=== PATIENT | female | born 1940 | race Caucasian/White ===

== ENCOUNTER 2017-01-01 08:07 | Inpatient (IN) | payer MEDICARE, OTHER ==
--- NOTE | ~2017-01-01 | OP ---
Record Of Operation [facility] [address] [place]. [address] NAME: OLENA MÉNDEZ : 40 STATUS : ADM IN PAT#: [id number] AGE: 76 ADM/REG DATE : 01/01/17 MR#: [id number] REPORT SERV DATE: 01/06/17 DICTATED BY: REID JONES DATE: 01/05/17 REPORT STATUS : Draft TRANSCRIBED BY: MODL DATE: 01/05/17 DATE OF PROCEDURE: 01/05/2017 PREOPERATIVE DIAGNOSES: 1. Coronary artery disease with angina. 2. Aortic valve stenosis. 3. Mitral valve stenosis with insufficiency. 4. Chronic diastolic heart failure. 5. Hypertension. 6. Hyperlipidemia. 7. Obesity. POSTOPERATIVE DIAGNOSES: 1. Coronary artery disease with angina. 2. Aortic valve stenosis. 3. Mitral valve stenosis with insufficiency. 4. Chronic diastolic heart failure. 5. Hypertension. 6. Hyperlipidemia. 7. Obesity. PROCEDURE PERFORMED: 1. Urgent coronary artery bypass grafting times five, left internal mammary artery placed to left anterior descending, reverse saphenous vein graft placed to the first obtuse marginal, reverse saphenous vein graft placed to the third obtuse marginal, reverse saphenous vein graft placed to the acute marginal and reverse saphenous vein graft placed to the posterior descending artery. 2. Mitral valve replacement using a 29 mm pericardial valve (Magna Ease and posterior chordal sparing. 3. Aortic valve replacement using a 23 mm pericardial valve (Trifecta). 4. Endoscopic vein harvest, saphenous vein from right leg and left thigh. 5. Transesophageal echocardiography. SURGEON: Reid Jones M.D. JOB SERVICE SPECIALIST: Bharathi Fletcher and Jeaneth Burdick. ANESTHESIA: Darian Lopez M.D. COMB TENDER: Daniel Ames M.D INDICATIONS: This is a 76-year-old female, who has been having increasing exercise intolerance with exertional dyspnea and some substernal chest discomfort. It has been going on over the last one to two years, but has become worse as of late. Echocardiography was asked for after the patient was noted to have a murmur. Echocardiography demonstrated significant aortic valve stenosis with moderate mitral valve stenosis and insufficiency. Record Of Operation [facility] [address] [place]. [address] NAME: OLENA MÉNDEZ : 40 STATUS : ADM IN PAT#: [id number] AGE: 76 ADM/REG DATE : 01/01/17 MR#: [id number] REPORT SERV DATE: 01/06/17 DICTATED BY: REID JONES DATE: 01/05/17 REPORT STATUS : Draft TRANSCRIBED BY: FERNANDA DATE: 01/05/17 Ventricular function was preserved with an ejection fraction greater 50%. She was referred for cardiac catheterization which demonstrated significant coronary artery disease, three- vessel. We were asked to see the patient for possible urgent revascularization and aortic valve replacement and mitral valve replacement. We discussed this operation at length with the patient and her family. After discussing operations, indication, risks, they wished to proceed. Estimated STS risk of mortality preoperatively was in excess of 6%. Morbidity was in the neighborhood of 30%. FINDINGS AT OPERATION: 1. Cross-clamp 204 minutes and total pump time 243 minutes. 2. The LAD was a 2 mm moderately diseased vessel. A 3 mm DEL RIO was anastomosed runoff. 3. The first obtuse marginal was 2 mm and moderately diseased. A 4 mm RSVG was anastomosed to it with good runoff. 4. The third obtuse marginal was 1.75 mm mildly diseased. A 4 mm RSVG anastomosed to it with good runoff. 5. The acute marginal branch was 1.75 mm mildly diseased. A 4 mm RSVG was anastomosed to it with good runoff. 6. The posterior descending artery was 1.5 mm mildly diseased. A 3 mm RSVG was anastomosed to it with good runoff. Unfortunately, there was not enough length of this vein graft to reach the ascending aorta. Therefore, it was piggybacked into the side of vein graft going to the acute marginal branch. 7. The vein quality was okay. From the thighs, the vein was reasonable quality conduit at 4 mm, however, below the knee. We only got one segment of vein below the right knee that was measuring in excess of 3 mm and this was used. All grafts did have good Doppler signal at the end of the case. 8. The mitral valve had thickened leaflets with heavy calcification at the posterior annulus. The posterior leaflet was restricted in motion and did coapt well with the anterior leaflet. We excised a lot of the posterior leaflet calcium at the annulus and then buttressed the leaflet tissue into the valve sutures to preserve the posterior chordal elements. The anterior leaflet and its chords were excised in total. A 29 mm pericardial valve (Magna Ease) was placed in the mitral valve position. We did preserve the posterior leaflet and chords. Fourteen Cor-Knots were used to secure the valve in place. 9. Aortic valve was heavily calcified. There were three leaflets with fusion of the right and left cusps. Coronary ostia were in their normal anatomic position; however, they were extremely heavily calcified. 10.Aortic valve was replaced using a 23 mm pericardial valve (Trifecta). Fifteen Cor- Knots secured the valve in place. 11.We did ligate and amputate the left atrial appendage using 60 mm purple staple load. 12.EN demonstrated a thickened left ventricle and right ventricle. Ventricular function was minimally reduced with an EF of 45%. The prosthetic valves were without perivalvular leak and appeared to be seated well on echo post implant. PATHOLOGIC SPECIMENS: Includes portions of aortic valve, mitral valve and left atrial appendage. DESCRIPTION OF PROCEDURE: The patient was brought to the operating suite where general Record Of Operation [address] [address] NAME: OLENA MÉNDEZ : 40 STATUS : ADM IN [facility]#: [id number] AGE: 76 ADM/REG DATE : 01/01/17 MR#: [id number] REPORT SERV DATE: 01/06/17 DICTATED BY: REID JONES DATE: 01/05/17 REPORT STATUS : Draft TRANSCRIBED BY: FERNANDA DATE: 01/05/17 anesthesia was induced. Airway secured with an endotracheal tube. Lines secured by Anesthesia. Curiel catheter was placed. The patient's chest, abdomen, groin, and legs prepped with Hibiclens and ChloraPrep and draped with Ioban sterile sheets. EN probe was placed by Dr. Lopez and examination carried out in my attendance. The saphenous vein was harvested from the right leg and left thigh using endoscopic technique. Briefly, the vein was cut directly down upon through a 2 cm incision placed at the medial aspect of the right knee. Then, using VasoView trocars, the vessel was dissected from the surrounding subcutaneous tissue and fat. The side branches were identified, ligated, divided with cautery. Once adequate length of vein had been dissected, a counterincision made up in the groin and in the lower leg where the vein was ligated, divided, and brought through the knee incision. The vein quality from above the knee was good, however, some of the portion of the vein below the knee was not usable. Therefore, we harvested the left thigh greater saphenous vein in an identical manner using a small incision placed in the medial aspect of the left knee. Once both conduits were out, the leg wounds were made hemostatic and closed in layers with absorbable suture and skin closed subcuticular fashion. Then, a midline sternal incision was made and the sternum opened with a saw. The left hemithorax was elevated and the endothoracic fascia was incised. The side branches of the SIMONA were clipped and divided. Once the SIMONA was completely dissected, the patient was anticoagulated with heparin and the chest tube placed the left pleural cavity. The SIMONA was clipped and divided distally. There was good flow through the SIMONA and its pedicle was infiltrated with papaverine. Then, the Israel retractor was placed in the pericardium over from the innominate vein and the diaphragm was T'd and tacked the chest wall. Cannulation pursestring sutures were placed and cannulation was carried out in routine manner. A retrograde cardioplegia cannula was placed in the coronary sinus. When all was in readiness, the patient was placed on cardiopulmonary bypass. The distal targets were marked out on the heart as described in the findings. Then, the aorta was crossclamped. Initial dose cold blood cardioplegia solution was given in a combination of antegrade and retrograde fashion, then a retrograde manner at 20 to 25 minutes intervals during remainder of the cross-clamp period. Following the first dose cardioplegia, the heart was positioned for the first obtuse marginal graft. Arteriotomy was made and the vein graft anastomosed it with 7-0 Prolene. The vein graft was measured back to the left side of the ascending aorta where it was divided. We then positioned the heart for the acute marginal graft. Another arteriotomy was made. The vein graft was then anastomosed to this vessel with 7-0 Prolene. This vein graft was measured back to the ascending aorta where it was divided. Another dose of cardioplegia was given and we positioned the heart for the third obtuse marginal graft. Arteriotomy was made. The vein graft was then anastomosed to this vessel with 7-0 Prolene. This vein graft was measured back to the ascending aorta where it was divided. We then positioned the heart for the PDA graft. Arteriotomy was made and the vein graft was then anastomosed to this vessel with 7-0 Prolene. Another dose of cardioplegia was given and we Record Of Operation [facility] [address] [place]. [address] NAME: OLENA MÉNDEZ : 40 STATUS : ADM IN PAT#: [id number] AGE: 76 ADM/REG DATE : 01/01/17 MR#: [id number] REPORT SERV DATE: 01/06/17 DICTATED BY: REID OJNES DATE: 01/05/17 REPORT STATUS : Draft TRANSCRIBED BY: MODL DATE: 01/05/17 positioned the heart for the LAD graft. Arteriotomy was made in the mid LAD. The SIMONA was brought out the left chest through a notch in the pericardium over the pulmonary artery. The SIMONA was opened and anastomosed to the LAD with running suture of 8-0 Prolene. The endothoracic fascia was tacked to the epicardium. Another dose of cardioplegia was given and the heart support was removed. The heart was gently retracted towards the surgeon. The left atrial appendage was grasped. It was ligated and amputated at its base using thoracoscopic stapler and a 60-mm purple staple load. Next, we turned our attention towards the mitral valve. The interatrial groove of [place] was dissected. A left atriotomy was made and a Israel retractor apparatus was assembled and positioned allowing good visualization of the mitral valve. The mitral valve was examined and as discussed above was fairly thickened with a very heavy bar of calcium along the posterior annulus. The anterior leaflet and mitral valve was excised and we opened the posterior leaflet near the annulus and let this pullback into the atrium. We then excised a large portion of this heavily posterior annular calcification. Once this was smooth and cleaned, the left ventricle was irrigated copiously with ice saline to remove any particulate matter. The valve was then sized and a 29 mm pericardial valve was selected. Interrupted pledgeted sutures of 2-0 Tycron were placed using a horizontal mattress fashion about the mitral valve annulus with the pledgets on the ventricular side. On the posterior leaflet, the free edge of the divided leaflet near the annulus was then reattached using these pledgeted sutures to the annulus to preserve the posterior chordal elements. Then, the sutures passed through the sewing cuff of the valve which was lowered into position. Each sutures individually secured and divided using a Cor-Knot device. A total of 14 Cor- Knots were utilized. The valve appeared to be well seated. An LV vent was then directed through the right superior pulmonary vein into the left ventricle through the mitral valve. The left atriotomy was closed in a two-layer fashion with running pledgeted suture of 4-0 Prolene. We then turned our attention towards the aortic valve. A hockey-stick type aortotomy incision was made. The aortic valve was exposed. There were three leaflets. They were heavily calcified and the ostia of the coronaries were very heavily calcified. The leaflets were excised and the annulus debrided of all calcific material. We then irrigated the ascending aorta and left ventricle copiously with iced saline removing particulate matter. The valve was sized and a 23 mm pericardial valve was selected (Trifecta). Next, interrupted horizontal mattress sutures of 2-0 Tycron were placed circumferentially about the aortic valve annulus with the pledgets on the ventricular side. The sutures were then passed through the sewing cuff of the aortic valve prosthesis. This was lowered into position each sutures individually secured and divided using a Cor-Knot device. A total of 15 Cor-Knots were utilized. The valve appeared to be well seated. Both right and left coronary ostia without obstruction. The aortotomy incision was then closed in a two-layer fashion with running pledgeted suture Record Of Operation [place] [id number] [facility] [place]. [address] NAME: OLENA MÉNDEZ : 40 STATUS : ADM IN [facility]#: [id number] AGE: 76 ADM/REG DATE : 01/01/17 MR#: [id number] REPORT SERV DATE: 01/06/17 DICTATED BY: REID JONES DATE: 01/05/17 REPORT STATUS : Draft TRANSCRIBED BY: MODL DATE: 01/05/17 of 5-0 Prolene. The patient is placed in Trendelenburg. Next, proximal anastomoses for the vein grafts were made. Three 4.5 mm aortotomy incisions were made using the punch. Each of the first obtuse marginal, the third obtuse marginal, and acute marginal branches were all anastomosed to these sites. Portion of the vein graft was not long enough to reach the ascending aorta from the PDA. Therefore, it was piggybacked into the side of vein graft going to the acute marginal branch. With the patient placed in Trendelenburg, a final dose of warm blood cardioplegia was given in a retrograde fashion. Ventricular and atrial pacing wires were placed. Following the last dose cardioplegia and deairing of the aorta, the aortic cross clamp was removed. Suture lines and distal proximal anastomoses were inspected and made hemostatic. Doppler demonstrated good flow through the grafts. The heart resumed a junctional rhythm. It was slow. It was then paced in AV sequential fashion at a rate of 80. Ventilation was begun. Inotropic agents were started and the heart was allowed to rest on cardiopulmonary bypass. After a short period of resting on the bypass pump, the heart was allowed to fill and eject. De-airing was monitored with EN. When deairing was completed, the LV vent was removed and these pursestring sutures tied. The ascending aortic vent was likewise removed and these pursestring sutures tied and reinforced. The patient was then weaned slowly from cardiopulmonary bypass using inotropic support. The venous cannula was removed and these pursestring sutures were tied. EN examination demonstrated good ventricular function with left ventricular and right ventricular hypertrophy. The aortic and mitral valve prostheses were well seated without perivalvular leak. Protamine was administered by Anesthesia and following a period of hemodynamic stability, the aortic cannula was removed and these pursestring sutures tied and reinforced. The patient continued to do well and chest irrigated copiously with saline. Meticulous hemostasis was obtained. Hemasorb was placed along the cut edge of the sternum. Once hemostasis was assured, the pericardium was draped over the anterior surface of heart and tacked in position. Doppler demonstrated good flow through the grafts following protamine administration. Then, chest tubes were placed and sternum reapproximated with 7 sternal wires. The clavipectoral fascia and linea alba closed with #1 Stratafix as was the subcutaneous tissue. The skin was closed in subcuticular fashion. The patient tolerated the procedure well. There were no complications. Sponge and needle counts were correct. DISPOSITION: The patient left intubated, sedated, and transported to the Intensive Care in stable condition. Record Of Operation [facility] [address] [place]. [address] NAME: OLENA MÉNDEZ : 40 STATUS : ADM IN PAT#: [id number] AGE: 76 ADM/REG DATE : 01/01/17 MR#: [id number] REPORT SERV DATE: 01/06/17 DICTATED BY: REID JONES DATE: 01/05/17 REPORT STATUS : Draft TRANSCRIBED BY: FERNANDA DATE: 01/05/17 FREDY/FERNANDA Reid Jones M.D. / [id number] CC: Lexi Luis M.D.
--- NOTE | ~2017-01-01 | DS ---
Discharge Summary [facility] [address] [place]. [address] NAME: OLENA MÉNDEZ : 40 STATUS : ADM IN [facility]#: [id number] AGE: 76 ADM/REG DATE : 01/01/17 MR#: [id number] REPORT SERV DATE: 02/09/17 DICTATED BY: DANIEL PORTILLO DATE: 02/08/17 REPORT STATUS : Draft TRANSCRIBED BY: MODL DATE: 02/08/17 ADMISSION DATE: 01/01/2017 DISCHARGE DATE: FINAL DISCHARGE SUMMARY Please refer to the interim discharge summary from 01/30/2017, job# [id number]. Updates to that interim discharge summary include: NEW DIAGNOSES: 1. Pleural effusions. 2. Right pneumothorax requiring chest tube placement. NEW CONSULTANTS: None. NEW PROCEDURES INCLUDE: 1. Ultrasound-guided thoracentesis, bilateral. 2. Right chest tube placement for pneumothorax. HOSPITAL COURSE: Updated. Please see the interim discharge summary dated 01/30/2017, for details prior to that date. Briefly, on 02/01/2017, Ms. Méndez experienced increasing shortness of breath and work of breathing. Chest x-ray confirmed increasing bilateral pleural effusions despite diuresis. She underwent ultrasound-guided thoracenteses on 02/01/2017, with 400 mL removed on the right and 1000 mL removed on the left. This was a clear straw-colored fluid. Microbiology workup was unremarkable for infection or empyema. On 02/02/2017, she complained of increased right-sided chest discomfort and shortness of breath, and the repeat chest x-ray demonstrating pneumothorax. A chest tube was placed. There was appropriate decompression and resolution of the chest tube over the next 72 hours, and chest tube was successfully removed on 02/07/2017. She remained in persistent rate controlled atrial fibrillation, otherwise hemodynamically stable. She remained euvolemic. Labs on 02/08/2017, with an anticipated discharge date of 02/09/2017, to rehab included a creatinine of 0.7, BUN 26, normal electrolytes, white blood cell count of 9.5, hematocrit 32, platelet count 325, and INR 1.9. FINAL DISCHARGE MEDICATIONS INCLUDE: 1. Metoprolol 50 mg twice daily. 2. Lisinopril 2.5 mg at bedtime. 3. Atorvastatin 10 mg at bedtime, maximally tolerated dose due to myalgias. 4. Demadex 20 mg daily and p.r.n. 5. Aldactone 25 mg daily. 6. Potassium 20 mEq, liquid formulation daily. 7. Simethicone 120 mg twice daily. 8. MiraLAX 1 packet twice daily. 9. Protonix 40 mg daily. 10.Ativan 1 mg at bedtime and p.r.n. Discharge Summary [place] [address] [place]. [address] NAME: OLENA MÉNDEZ : 40 STATUS : ADM IN PAT#: [id number] AGE: 76 ADM/REG DATE : 01/01/17 MR#: [id number] REPORT SERV DATE: 02/09/17 DICTATED BY: DANIEL PORTILLO DATE: 02/08/17 REPORT STATUS : Draft TRANSCRIBED BY: FERNANDA DATE: 02/08/17 ALLERGIES: INCLUDE ALL HEPARIN AND LOW MOLECULAR WEIGHT HEPARIN PRODUCTS DUE TO HEPARIN- INDUCED THROMBOCYTOPENIA WITH THROMBOSIS. SHELLFISH, SULFA ANTIBIOTICS, HIGH-DOSE STATINS CAUSE MYALGIAS, CODEINE CAUSES GI UPSET, ASPIRIN WITH A HISTORY OF GI UPSET AND PEPTIC ULCER DISEASE. FINAL DISPOSITION: To rehabilitation for post CVA followup. Continue tube feeds as currently prescribed per nutrition until p.o. intake is adequate. Followup appointments include CT surgery on 03/15/2017, at 3:30 p.m. and Cardiology 03/16/2017, at 1:15 p.m. JUSTIN/FERNANDA Daniel Portillo M.D. / [id number] CC: Lexi Luis M.D.
--- NOTE | ~2017-01-01 | DS ---
Discharge Summary [address] [place]. [address] NAME: OLENA MÉNDEZ : 40 STATUS : ADM IN PAT#: [id number] AGE: 76 ADM/REG DATE : 01/01/17 MR#: [id number] REPORT SERV DATE: 01/30/17 DICTATED BY: DANIEL PORTILLO DATE: 01/30/17 REPORT STATUS : Draft TRANSCRIBED BY: MODL DATE: 01/30/17 ADMISSION DATE: 01/01/2017 DISCHARGE DATE: DISCHARGE DIAGNOSES: Include: 1. Coronary artery disease S/P [address] Jones. 2. Severe aortic stenosis, status post bioprosthetic AVR. 3. Moderate mitral stenosis/regurgitation, status post bioprosthetic mitral valve replacement. 4. Paroxysmal atrial fibrillation. 5. Carotid stenosis. 6. Hypertension. 7. Hyperlipidemia. 8. Heparin-induced thrombocytopenia. 9. 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 10.Status post PEG tube placement. 11.Acute on chronic diastolic heart failure, secondary to aforementioned diagnoses. 12.Hypokalemia. 13.Acute blood loss anemia. DISCHARGE MEDICATIONS INCLUDE: 1. Metoprolol 25 mg twice daily. 2. Coumadin as directed. 3. Atorvastatin 40 mg at bedtime. 4. Bumex 2 mg daily. 5. Aspirin 81 mg daily. 6. Vitamin C supplementation. 7. Donepezil 5 mg at bedtime. 8. Lorazepam 0.5 mg q.12 hours p.r.n. 9. Mirtazapine 30 mg at bedtime. 10.Pantoprazole 40 mg daily. 11.Potassium supplementation. 12.Pregabalin 50 mg p.o. q.8 hours. ALLERGIES: INCLUDE: 1. ALL HEPARIN PRODUCTS. 2. SULFA PRODUCTS, WHICH CAUSES A RASH. 3. HIGH-DOSE STATINS CAUSE MYALGIAS/MYOPATHY. 4. SHELLFISH WITH AN UNKNOWN REACTION. 5. INFLUENZA VACCINATION WITH AN UNKNOWN REACTION. PROCEDURES: During admission include: 1. CABG with AVR/MVR. 2. Upper endoscopy. 3. Lower endoscopy. 4. Status post PEG tube placement. Discharge Summary [address] [place]. [address] NAME: OLENA MÉNDEZ : 40 STATUS : ADM IN PAT#: [id number] AGE: 76 ADM/REG DATE : 01/01/17 MR#: [id number] REPORT SERV DATE: 01/30/17 DICTATED BY: DANIEL PORTILLO DATE: 01/30/17 REPORT STATUS : Draft TRANSCRIBED BY: FERNANDA DATE: 01/30/17 CONSULTANTS: Include: 1. Cardiovascular Surgery, Dr. Jones. 2. Neurology, Dr. Austin. 3. Gastroenterology, Dr. Andrade. 4. Hematology/Oncology, Dr. Rincon. RADIOLOGIC PROCEDURES PERFORMED: Include: 1. Echocardiogram x2. 2. CT brain x2. 3. MRI brain. 4. CT chest. 5. CT abdomen. HOSPITAL COURSE: Ms. Méndez is a 76-year-old female who is admitted 01/01/2017 for coronary angiography with plans for preoperative assessment prior to planned aortic and mitral valve replacements due to severe aortic stenosis and mitral stenosis from calcific degeneration. She had had progressive symptoms of exertional shortness of breath and a pre- procedure stress test was severely impaired exercise tolerance. The cardiac catheterization revealed severe multivessel CAD. She was admitted, and CT Surgery was consulted. On 01/05/2017, she underwent 5-vessel coronary bypass grafting as well as bioprosthetic aortic valve and mitral valve replacement. She was extubated as usual on postop day #1. On postop day #3, she developed paroxysmal atrial fibrillation with rapid ventricular response and had increased edema and work of breathing. She was given IV diuretics and IV amiodarone. Her atrial fibrillation was initially easily terminating, but on postop day #4 atrial fibrillation with rapid ventricular response reoccurred and was more persistent. She was rate controlled with metoprolol. Due to her postop state with both bioprosthetic aortic and mitral valve replacements and concern for high risk of embolic CVA, heparin was restarted. Over the next three days, she improved with diuresis and was doing reasonably well on Coumadin and had an INR of 1.7. On postop day #7, she had a precipitous decline in mental status with acute onset left-sided weakness. This coincided with an acute platelet drop from 150,000 to 30,000. Heparin was discontinued immediately. Argatroban was started and Hematology/Oncology was consulted. CT scan of the head showed findings suggestive of multiple small focal bilateral embolic events. The concern was for heparin-induced thrombocytopenia with thrombosis. Over the next several days, she had a waxing and waning mental status. Four days after her diagnosis of heparin-induced thrombocytopenia, her left upper and lower extremity weakness have failed to improve, and she underwent an MRI of the brain confirming multiple bilateral embolic events now with new scant amounts of hemorrhage. Her argatroban was discontinued for 48 hours, but due to platelets dropping again, this was restarted. Lengthy discussions were held with the family regarding the risk of resuming anticoagulation combo but with limited options due to ongoing heparin-induced thrombocytopenia. Family understood risk and benefits. She ultimately did reasonably well restarting argatroban and warfarin. Her left upper extremity weakness resolved nearly completely, but left lower extremity weakness persisted. She was made euvolemic on exam after diuresis, and she had some acute blood loss anemia, that did not require packed red blood cell transfusion. On postop day #15, 01/20/2017, she was transferred to the floor for further care. Shortly, thereafter, she began to complain of decreased appetite and severe Discharge Summary [address] [address] NAME: OLENA MÉNDEZ : 40 STATUS : ADM IN PAT#: [id number] AGE: 76 ADM/REG DATE : 01/01/17 MR#: [id number] REPORT SERV DATE: 01/30/17 DICTATED BY: DANIEL PORTILLO DATE: 01/30/17 REPORT STATUS : Draft TRANSCRIBED BY: MODFredy DATE: 01/30/17 lower abdominal and rectal pain. GI was consulted, and she underwent upper and lower endoscopy, which revealed only internal hemorrhoids and diverticula with large amount of stool. She ultimately underwent PEG tube placement for tube feedings. Symptoms of lower abdominal and rectal pain persisted for several days requiring narcotic analgesics which complicated mental status participation with rehabilitation. She ultimately underwent an aggressive bowel regimen and her fecal impaction, confirmed on CT, resolved, and she felt much better. She did undergo a second lower endoscopy which confirmed resolution of compaction with internal hemorrhoids that were not thrombosed and diverticula, some benign- appearing polyps were biopsied on 01/29/2017. On 01/30/2017, she was resting much more comfortably. She was able the rest and was participating with rehab. She is back on her gastric band, and Coumadin had been restarted. She had otherwise been medically stable with controlled heart rate and blood pressure for over two weeks. Ultimate plan was for more aggressive physical therapy, occupational therapy, ongoing medical management, and transfer to [facility] facility once INR was therapeutic on Coumadin and argatroban was discontinued. DISCHARGE DISPOSITION: [facility] facility[facility]rehab. INSTRUCTIONS: Tube feeds per nutrition recommendations. PT/OT per rehab. FOLLOWUP: 1. Follow up with Dr. Portillo at the [facility] four weeks after discharge. 2. Follow up with Dr. Jones of Cardiothoracic Surgery four to six weeks after discharge. Updated discharge pending. Final disposition to [facility] facility/rehab once INR is therapeutic. No other changes to the aforementioned plan anticipated at this time. Greater than 30 minutes was spent compiling data and reviewing records and preparation for discharge process. AEA/YAMILKAL Daniel Portillo M.D. / [id number] CC: Lexi Luis M.D.
--- NOTE | ~2017-01-01 | CN ---
Consultation Report [facility] [address] [place]. [address] NAME: OLENA MÉNDEZ : 40 STATUS : ADM IN PAT#: [id number] AGE: 76 ADM/REG DATE : 01/01/17 MR#: [id number] REPORT SERV DATE: 01/15/17 DICTATED BY: MADYSON HERNANDEZ DATE: 01/13/17 REPORT STATUS : Draft TRANSCRIBED BY: FERNANDA DATE: 01/13/17 NEUROLOGICAL EVALUATION-CODE STROKE. DATE OF CONSULTATION: 01/12/2017 HISTORY OF PRESENT ILLNESS: This is a 76-year-old white female, status post cardiac surgery for aortic and mitral valve replacement approximately a week ago, who was noted to have worsening left arm and left leg weakness. It was noted by the patient's nurses in the CVICU that the patient was not moving her left arm and left leg, the morning when she was aroused. History was obtained by the patient's nurse, who had noted that the patient had generalized weakness throughout the night, which was assumed to be secondary to her being tired and sleepy. However, in the morning, when the patient was turned, it was noted that the patient had left arm and left leg weakness. Code stroke was called by the patient's physician's spa assistant manager for cardiology service, Jacky Vera. The patient was taken emergently to CT scanner, which showed a suspicious area of hyperintensity in the posterior foci. The patient's MRA of neck and brain was performed as per CVA protocol. CTA showed no significant occlusive thrombotic areas. The patient was taken to the MRI scanner for better delineation of the pathology in view of her preexisting past medical history. The MRI of the brain diffusion weighted studies showed multiple areas of possible embolic strokes with no acute bleeding. These were in bilateral hemispheres, in white and larios matter junctions and also in the posterior foci. Laboratory studies on the morning of the patient's code, her PT was 110, platelet count 37,000. The patient was on Coumadin, heparin. The patient's Coumadin was stopped. It was assumed that the patient has HIT response. PAST MEDICAL HISTORY: As mentioned above, the patient had coronary artery disease, three- vessel; mitral and aortic stenosis; hypertension; hyperlipidemia; hypothyroidism; recent cardiac surgery for mitral and aortic valve replacement. ALLERGIES: TO SHELLFISH, ASPIRIN, SULFA, CODEINE, STATIN. APPARENTLY, ASPIRIN CAUSES GI UPSET AND SO DOES CODEINE. THE PATIENT HAS A RASH TO SULFA DRUGS. PHYSICAL EXAMINATION: The patient's neurological examination while she was in the radiology suite for CT and CTA showed her to be lethargic, but arousable to voice. The patient followed commands, however, had mild left-sided neglect and left arm and left leg weakness, graded 3/5. Visual san on confrontation appeared intact; however, the patient did have left-sided visual and sensory neglect. The patient was oriented to self, however, stated she was in [facility], was not oriented to date. Her speech was fluent. The patient did not have any signs of aphasia, although she appeared to perseverate and repeat the same answers. Her attention span was decreased. Deep tendon reflexes showed no significant asymmetry, absent leg reflexes, 1/2 upper extremity reflexes. Babinski not elicitable on the left. The patient did not appear to have ataxia on the right [id number] testing, left could not be tested secondary to weakness. The patient's general physical exam showed her blood pressure to be within normal range. The patient was 123/60, pulse was 75, respirations 16, temperature afebrile. The patient's weight was 82.2 kilos. Consultation Report [address] [address] NAME: OLENA MÉNDEZ : 40 STATUS : ADM IN [facility]#: [id number] AGE: 76 ADM/REG DATE : 01/01/17 MR#: [id number] REPORT SERV DATE: 01/15/17 DICTATED BY: MADYSON HERNANDEZ DATE: 01/13/17 REPORT STATUS : Draft TRANSCRIBED BY: MODL DATE: 01/13/17 The patient's NIH scale calculated at that time was 16. ASSESSMENT AND PLAN: Review of the patient's CT and MRI as mentioned above showed signs of multiple signal abnormalities, some in the locations suggestive of possible embolic stroke, some watershed ischemic areas. 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 The patient will receive argatroban. Hematology consult is pending. The patient's condition appears to be guarded at this time in view of increased risk of recurrent embolic strokes, possible cardiac source of emboli should also be considered. We would recommend to follow acute stroke protocol with recommendations for anticoagulation, which is being handled by Cardiology. Monitor neurological signs and symptoms and progress. So, the patient is going to be continued on argatroban. A total of 2 hours of critical care time was spent with the patient with direct patient care concerning neurological condition, acute changes, and code stroke. The patient's condition is guarded. The patient was not a candidate for thrombolytic therapy in view of the history and findings on the CT and MRI scan. Thank you for allowing me to participate in this patient's care. We will follow with the patient with you. ZEHRA/FERNANDA Madyson Hernandez MD / [id number] CC: Lexi Luis M.D.
--- NOTE | ~2017-01-01 | EGD ---
EGD REPORT [facility] [address] [address] NAME: OLENA MÉNDEZ : 40 STATUS : ADM IN PAT#: [id number] AGE: 76 ADM/REG DATE : 01/01/17 MR#: [id number] REPORT SERV DATE: 01/25/17 DICTATED BY: NICO LI DATE: 01/25/17 REPORT STATUS : Draft TRANSCRIBED BY: [facility] DATE: 01/25/17 Endoscopy Center Patient Name: Olena Méndez Date of : 1940 Attending MD: NICO LI MD Procedure Date No Time: 01/25/2017 Procedure: Flexible Sigmoidoscopy Indications: Rectal pain Medicines: Monitored Anesthesia Care Complications: No immediate complications. Estimated blood loss: None. Procedure: Pre-Anesthesia Assessment: - ASA Grade Assessment: III - A patient with severe systemic disease. After obtaining informed consent, the endoscope was passed under direct vision. Throughout the procedure, the patient's blood pressure, pulse, and oxygen saturations were monitored continuously. The GIF H190 [id number] was introduced through the anus and advanced to the rectum. The GIF H190 [id number] was introduced through the and advanced to. The flexible sigmoidoscopy was technically difficult and complex due to inadequate bowel prep. The quality of the bowel preparation was unsatisfactory. Findings: The perianal exam was abnormal. Findings include non-thrombosed external hemorrhoids. Copious quantities of solid stool was found in the rectum, precluding visualization. No abnormalities were seen in the rectum, but the examination was severely limited. Impression: - Non-thrombosed external hemorrhoids found on perianal exam. - Stool in the rectum making examination limited. Recommendation: - Return patient to hospital [facility] for ongoing care. Procedure Code(s): --- Professional --- 93039, Sigmoidoscopy, flexible; diagnostic, with or without collection of specimen(s) by brushing or washing (separate procedure) Diagnosis Code(s): --- Professional --- K64.4, Residual hemorrhoidal skin tags K62.89, Other specified diseases of anus and rectum [address]GD REPORT [address] [place] [address] NAME: OLENA MÉNDEZ : 40 STATUS : ADM IN [facility]#: [id number] AGE: 76 ADM/REG DATE : 01/01/17 MR#: [id number] REPORT SERV DATE: 01/25/17 DICTATED BY: NICO LI DATE: 01/25/17 REPORT STATUS : Draft TRANSCRIBED BY: [facility] DATE: 01/25/17 CPT copyright 2013 [employer]. All rights reserved. The codes documented in this report are preliminary and upon mushroom cultivator review may be revised to meet current compliance requirements. Nico Li MD NICO LI MD 01/25/2017 8:10 AM This report has been signed electronically. Number of Addenda: 0 Note Initiated On: 01/25/2017 7:32 AM Scope Withdrawal Time 0 hours 0 minutes [address] [place] [address] [place] [id number]
--- NOTE | ~2017-01-01 | CN ---
Consultation Report [facility] [address] [place]. [address] NAME: OLENA MÉNDEZ : 40 STATUS : ADM IN PAT#: [id number] AGE: 76 ADM/REG DATE : 01/01/17 MR#: [id number] REPORT SERV DATE: 01/03/17 DICTATED BY: REID JONES DATE: 01/02/17 REPORT STATUS : Draft TRANSCRIBED BY: MODFredy DATE: 01/02/17 CONSULTATION NOTE DATE OF CONSULTATION: 01/01/2017 REASON FOR CONSULTATION: Three-vessel flow-limiting coronary artery disease, mitral and aortic stenosis, consideration for coronary artery bypass grafting and valve replacement surgery. 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. She over the past year at least has had a decline in her exercise tolerance, with shortness of breath that was marked in 08/2016 when her daughter took her shopping. She noted at that time, that her mother could not walk even a block on level ground without becoming profoundly short of breath and having to sit down and rest. The patient also notes that around [place] time or thereafter she has had chest pressure when walking uphill to her anabaptist. This resolves with rest. She has not taken anything for these symptoms. She has attributed her feeling tired and fatigued to her blood pressure medication. Also, over the past several months, her daughter has noted that her mother is most forgetful and seems to have problems with both recent and remote memory. Primarily because of her problems with exertion and chest discomfort, her daughter sought medical attention and her cardiology workup thus far has been remarkable for abnormal stress test, abnormal EKG, heart murmur, which on the echocardiogram of 12/11/2016 showed moderate mitral stenosis and moderate aortic stenosis. Cath yesterday showed normal left ventricular function, and significant three-vessel flow-limiting coronary artery disease as well as mean gradient of 37 mmHg across the aortic valve and mitral valve gradient of 11 mmHg. We were asked to see for possible surgical intervention at this hospitalization. PRIOR MEDICAL HISTORY: She is a lifelong nonsmoker. She is currently treated for hypertension and hyperlipidemia. She notes a history of heart murmur and irregular heartbeat. She has prior cataracts. PRIOR SURGICAL HISTORY: Significant for tubal ligation, cataract excision, , tonsillectomy, and D and C. ALLERGIES: INCLUDE; SULFA WHICH CAUSES RASH, STATINS WHICH CAUSED HER TO HAVE MYALGIAS, CODEINE WHICH CAUSES NAUSEA, ASPIRIN INTOLERANCE CAUSING NAUSEA, INFLUENZA VACCINE CAUSES HER TO ACHE ALL OVER, AND SHELLFISH CAUSED HER TO HAVE THROAT SWELLING. MEDICATIONS: Taken at home include; amlodipine. Consultation Report [place] [id number] [facility] [place]. [address] NAME: OLENA MÉNDEZ : 40 STATUS : ADM IN PAT#: [id number] AGE: 76 ADM/REG DATE : 01/01/17 MR#: [id number] REPORT SERV DATE: 01/03/17 DICTATED BY: REID JONES DATE: 01/02/17 REPORT STATUS : Draft TRANSCRIBED BY: FERNANDA DATE: 01/02/17 FAMILY HISTORY: Significant for father after bypass surgery for coronary artery disease, brother with myocardial infarction, who had stenting, mother had hypertension and diabetes, and she has son also with coronary artery disease. SOCIAL HISTORY: She lives alone, is a retired nurse, never smoker and does not use alcohol or illicit drugs. REVIEW OF SYSTEMS: GENERAL: Positive for fatigue and exercise intolerance. Negative for any fevers, chills, night sweats, or malaise. INTEGUMENTARY: Negative for rashes, lesions, and masses per the patient. ENT: Positive for her prior cataract surgery and she wears glasses. She has some diminution of her hearing. RESPIRATORY: Positive for breathlessness with exertion and dyspnea on exertion. She denies any paroxysmal nocturnal dyspnea symptoms. She denies any wheezing. She does note that for the past week, she has had intermittent cough that is productive of sputum. CV: Positive for chest pressure, negative for radiation of discomfort into her neck or jaws or back. She has a history of heart murmur. She denies any lower extremity edema. She denies any abnormal heart rhythm, although she admits to palpitations. GI: Negative. : Negative. REPRODUCTIVE: Negative other than the above. MUSCULOSKELETAL: Negative for arthralgias or myalgias. NEURO: Positive for memory loss both recent and remote memory. HEME/ONC: Negative. She denies any history of blood clots or free bleeding. She does have some bruising on her arms, which she notes with minor trauma. ENDOCRINE: Negative for thyroid problems or diabetes. She notes that one time she took thyroid replacement therapy, but is no longer taking that. Otherwise, negative or as above. PHYSICAL EXAMINATION: GENERAL: She is a pleasant and overweight white female, in no acute distress. Her height is 157.48 cm. Weight is 73.19 kg. VITAL SIGNS: Blood pressure 148/75, temperature 97.7, pulse 76, respirations 16, and saturations 94% on room air. HEENT: Normocephalic, atraumatic. SKIN, HAIR, AND NAILS: Good hygiene. No lesions, masses, or rashes. She has some purpura over both forearms. HEENT: Normocephalic, atraumatic. Pupils are equal, round, reactive to light and accommodation, sclerae clear, conjunctivae pink. Oral and buccal mucosa, pink and moist and teeth are in good condition. Mallampati class 1 airway. NECK: Supple. No restricted range of motion. She has radiated murmur into both carotids. No thyroid enlargement or nodularity. No adenopathy. CHEST: Clear to auscultation. No use of accessory muscles. No chest wall tenderness. No deformity. Consultation Report [address] [address] NAME: OLENA MÉNDEZ : 40 STATUS : ADM IN [facility]#: [id number] AGE: 76 ADM/REG DATE : 01/01/17 MR#: [id number] REPORT SERV DATE: 01/03/17 DICTATED BY: REID JONES DATE: 01/02/17 REPORT STATUS : Draft TRANSCRIBED BY: FERNANDA DATE: 01/02/17 BREASTS: Not examined. CV: Regular rate and rhythm with both systolic and mitral diastolic murmurs heard. She has palpable and symmetric central peripheral pulses, no clubbing, cyanosis, or edema. There are lower extremity varicosities. ABDOMEN: Soft, obese, nontender with normoactive bowel sounds. No hepatosplenomegaly. /RECTAL: Declined. MUSCULOSKELETAL: No kyphoscoliosis. No asymmetry. NEURO: She is alert and oriented to day, date, place, and situation at present. No tremors. She recognizes me from working with me in the past. LABORATORY DATA: Her EKG shows sinus rhythm with premature supraventricular complexes and PVCs as well as nonspecific ST abnormality. Her echo showed normal left ventricular function with ejection fraction of 55%, normal right ventricular function and size with mild diastolic dysfunction. Moderate mitral and moderate aortic stenosis. Her nuclear stress test demonstrated no ischemia with post-exercise EF 57% and rated overall low risk stress test. Catheterization yesterday by Dr. 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 Ejection fraction was 55% with 3 to 4+ mitral regurgitation, PA pressures of 38/16 with wedge of 16, RV was 40/7 and mean mitral gradient was 11 mmHg with heart rate of 83, aortic valve gradient was 37 mmHg. CURRENT LABORATORY DATA: Sodium is 140, potassium 3.8, chloride 103, CO2 of 25, BUN 15, and creatinine 0.72. Her CBC is remarkable for leukocytosis of 15,000, hemoglobin is 13.5, hematocrit 40.4, and platelets 336,000. IMPRESSION: Three-vessel flow-limiting coronary artery disease and significant mitral and aortic valve stenosis, in a 76-year-old female with decline in her functional status over the past several months or year. We talked with her and her daughter today about possible coronary artery bypass grafting plus or minus aortic or mitral valve replacements. We talked about the surgery, usual perioperative course, indications, benefits, and serious risks. The transesophageal echocardiogram is currently pending as are the carotid ultrasound results. We will discuss further with the patient and daughter. We have the results of these tests. It may be beneficial to have her evaluated by Neurology in advance of any surgery. We appreciate the opportunity to participate in her care and will make further disposition when her data set is complete and she has been seen by Dr. Jones. DICTATED BY: Tawanda Raymond N.P. MSL/MODL Reid Jones M.D. Consultation Report [address] [place]. [address] NAME: OLENA MÉNDEZ : 40 STATUS : ADM IN PAT#: [id number] AGE: 76 ADM/REG DATE : 01/01/17 MR#: [id number] REPORT SERV DATE: 01/03/17 DICTATED BY: REID JONES DATE: 01/02/17 REPORT STATUS : Draft TRANSCRIBED BY: MODL DATE: 01/02/17 / [id number] CC: Lexi Luis M.D.
--- NOTE | ~2017-01-01 | CN ---
Consultation Report [facility] [address] [place]. [address] NAME: OLENA MÉNDEZ : 40 STATUS : ADM IN PAT#: [id number] AGE: 76 ADM/REG DATE : 01/01/17 MR#: [id number] REPORT SERV DATE: 01/20/17 DICTATED BY: REID GARCIA DATE: 01/20/17 REPORT STATUS : Draft TRANSCRIBED BY: MODL DATE: 01/20/17 GI CONSULTATION DATE OF CONSULTATION: REASON FOR CONSULTATION: Rectal pain. HISTORY OF PRESENT ILLNESS: This is a 76-year-old white female, who underwent urgent coronary artery bypass grafting with mitral valve replacement and aortic valve replacement. Postoperatively, she was started on heparin and developed heparin-induced thrombocytopenia. Anticoagulation had to be stopped. She developed a CVA. The patient has had some diarrhea, which has resolved. She was C diff negative. She is Hemoccult-positive and has mild anemia, but is currently not in a state that she can have endoscopic evaluation. She complains of some rectal discomfort, and she was started on hemorrhoidal treatment and actually has improved quite a bit. She is on a Xylocaine ointment as well as anti- inflammatory. The patient denies any fever or chills and feels her rectum feels much better since starting the medication. She denies any prior EGD or colonoscopy in the past. PAST MEDICAL HISTORY: Includes coronary artery disease, hypertension, atrial fibrillation, peripheral vascular disease, hyperlipidemia, cataracts. PAST SURGICAL HISTORY: Includes tubal ligation, cataract surgery, C section, tonsillectomy, and then as above with recent cardiovascular surgery. MEDICATIONS: Include ascorbic acid, Bumex, iron sulfate, gabapentin, hemorrhoidal ointment every six hours, insulin as needed, metoprolol, pantoprazole, zinc sulfate, pravastatin, potassium sustained release. FAMILY HISTORY: Noncontributory. ALLERGIES: INCLUDE SULFA, STATINS, CODEINE, ASPIRIN, INFLUENZA VIRUS VACCINE, AND SHELLFISH. REVIEW OF SYSTEMS: A 10-point review of systems is otherwise negative. PHYSICAL EXAMINATION: HEENT: Normocephalic and atraumatic. Extraocular muscles appear intact. NECK: Supple. No JVD noted. HEART: Irregular. LUNGS: Clear to auscultation. ABDOMEN: Soft and nontender. EXTREMITIES: No cyanosis or clubbing. Just mild edema. VITAL SIGNS: Temperature is 99.4, pulse is 90, respirations 24, blood pressure 110/60. RECTAL: We did roll the patient to do a rectal exam. She does have hemorrhoids. Stool was Consultation Report [place] [address] [place] [address] NAME: OLENA MÉNDEZ : 40 STATUS : ADM IN PAT#: [id number] AGE: 76 ADM/REG DATE : 01/01/17 MR#: [id number] REPORT SERV DATE: 01/20/17 DICTATED BY: REID GARCIA DATE: 01/20/17 REPORT STATUS : Draft TRANSCRIBED BY: MODL DATE: 01/20/17 brown without gross bleeding. LABORATORY DATA: Sodium 140, potassium 3.7, chloride 99, CO2 is 33, BUN 39, creatinine 0.76, glucose is 90. White count is 12.2, hemoglobin 8.9, hematocrit 29.7, platelet count is 118. Stool for blood was Hemoccult-positive. INR is 1.9. Stool for C diff was negative. IMPRESSION: 1. Hemorrhoids with pain and discomfort, improving on treatment. 2. Heme-positive stool. 3. Anemia. 4. Status post coronary artery bypass, emergent. 5. Developed heparin-induced thrombocytopenia. 6. Cerebrovascular accident. RECOMMENDATIONS: 1. Continue current hemorrhoidal treatment. 2. Add Benefiber. 3. No plans for colonoscopy or upper endoscopy at the present time given her recent stroke and recent bypass emergently. We will be available if needed for re-consultation. JULITA/FERNANDA Reid Garcia M.D. / [id number] CC: Lexi Luis M.D.
--- NOTE | ~2017-01-01 | EGD ---
EGD REPORT [facility] [address] [place]. [address] NAME: OLENA MÉNDEZ : 40 STATUS : ADM IN PAT#: [id number] AGE: 76 ADM/REG DATE : 01/01/17 MR#: [id number] REPORT SERV DATE: 01/29/17 DICTATED BY: JELLY QU[place] DATE: 01/29/17 REPORT STATUS : Draft TRANSCRIBED BY: [employer] DATE: 01/29/17 [facility] Patient Name: Olena Méndez Date of : 1940 Attending MD: JELLY [place], Procedure Date No Time: 01/29/2017 Procedure: Colonoscopy Indications: Iron deficiency anemia secondary to chronic blood loss, Rectal pain Medicines: Monitored Anesthesia Care Complications: No immediate complications. Estimated blood loss: None. Procedure: Pre-Anesthesia Assessment: - ASA Grade Assessment: III - A patient with severe systemic disease. After I obtained informed consent, the scope was passed under direct vision. Throughout the procedure, the patient's blood pressure, pulse, and oxygen saturations were monitored continuously. The CF [id number] was introduced through the anus and advanced to the cecum, identified by appendiceal orifice and ileocecal valve. The colonoscopy was performed without difficulty. The patient tolerated the procedure well. The quality of the bowel preparation was adequate. Findings: The perianal exam was abnormal. Findings include skin tags. Two sessile polyps were found in the ascending colon. The polyps were 2 to 3 mm in size. These polyps were removed with a cold biopsy forceps. Resection and retrieval were complete. Verification of patient identification for the specimen was done. Estimated blood loss was minimal. Multiple small-mouthed diverticula were found in the sigmoid colon, in the descending colon, in the transverse colon and in the ascending colon. Internal hemorrhoids were found during retroflexion and were Grade II (internal hemorrhoids that prolapse but reduce spontaneously). The exam was otherwise without abnormality on direct and retroflexion views. Impression: - Perianal skin tags found on perianal exam. - Two 2 to 3 mm polyps in the ascending colon. Resected and retrieved. - Diverticulosis in the sigmoid colon, in the descending colon, in the transverse colon and in the ascending colon. - Internal hemorrhoids. EGD REPORT [address] [address] NAME: OLENA MÉNDEZ : 40 STATUS : ADM IN [facility]#: [id number] AGE: 76 ADM/REG DATE : 01/01/17 MR#: [id number] REPORT SERV DATE: 01/29/17 DICTATED BY: JELLY QUINTANA DATE: 01/29/17 REPORT STATUS : Draft TRANSCRIBED BY: [employer] DATE: 01/29/17 - The examination was otherwise normal on direct and retroflexion views. Recommendation: - Patient has a contact number available for emergencies. The signs and symptoms of potential delayed complications were discussed with the patient. Return to normal activities tomorrow. Written discharge instructions were provided to the patient. - Return to previous diet. - Continue present medications. - Await pathology results. Procedure Code(s): --- Professional --- 69416, Colonoscopy, flexible, proximal to splenic flexure; with biopsy, single or multiple Diagnosis Code(s): --- Professional --- K64.4, Residual hemorrhoidal skin tags D12.2, Benign neoplasm of ascending colon K64.1, Second degree hemorrhoids K57.30, Diverticulosis of large intestine without perforation or abscess without bleeding D50.0, Iron deficiency anemia secondary to blood loss (chronic) K62.89, Other specified diseases of anus and rectum CPT copyright 2013 [employer]. All rights reserved. The codes documented in this report are preliminary and upon director graphics review may be revised to meet current compliance requirements. JELLY MARIANO, 01/29/2017 2:48 PM Number of Addenda: 0 Note Initiated On: 01/29/2017 2:01 PM Scope Withdrawal Time 0 hours 14 minutes 20 seconds [address] [place] [address]
--- NOTE | ~2017-01-01 | CN ---
Consultation Report [facility] [address] [place]. [address] NAME: OLENA MÉNDEZ : 40 STATUS : ADM IN PAT#: [id number] AGE: 76 ADM/REG DATE : 01/01/17 MR#: [id number] REPORT SERV DATE: 01/12/17 DICTATED BY: JOAQUIN CLARK DATE: 01/12/17 REPORT STATUS : Draft TRANSCRIBED BY: MODL DATE: 01/12/17 HEMATOLOGY CONSULTATION DATE OF CONSULTATION: REASON FOR CONSULTATION: Probable heparin induced thrombocytopenia. HISTORY OF PRESENT ILLNESS: This is a 76-year-old, white female, with past medical historysignificant for CAD, hypertension, atrial fibrillation, carotid stenosis, who is postop day 7 status post CABG/AVR/MVR. She developed sudden onset left-sided weakness this morning. Code stroke was called. MRI of the brain was consistent with acute CVA. The patient was also noted to have a decline in her platelet count. Platelets are 124 on 01/10, 142 on 01/11, and 37 this morning. HIT testing was sent, and the HIT JIMI test returned positive with an OD of 1.133. Looking back at the past history, the patient was treated with unfractionated heparin from 01/03 to 01/05, then from 01/10 until today. Heparin was stopped, and argatroban was begun. Currently, the patient is delirious. She believes that she is at her home at [place]. She complains of pain "all over." Further history is unable to be obtained. PAST MEDICAL HISTORY: 1. CAD. 2. Hypertension. 3. Atrial fibrillation. 4. Peripheral vascular disease with carotid stenosis. 5. Hyperlipidemia. 6. Cataracts. PAST SURGICAL HISTORY: 1. CABG/AVR/MVR as above. 2. Tubal ligation. 3. Cataract surgery. 4. . 5. Tonsillectomy. ALLERGIES: MULTIPLE ALLERGIES INCLUDING SULFA, STATINS, CODEINE, ASPIRIN, INFLUENZA VACCINE, AND SHELL FISH. MEDICATIONS: Current medications include argatroban, Cordarone, Norvasc, vitamin C, Bumex, iron, insulin sliding scale, Cozaar, Protonix, potassium, Senokot, and warfarin which was discontinued today. The patient also has p.r.n. medications for nausea and pain. She is on the electrolyte protocol. Consultation Report [facility] [address] [place]. [address] NAME: OLENA MÉNDEZ : 40 STATUS : ADM IN PAT#: [id number] AGE: 76 ADM/REG DATE : 01/01/17 MR#: [id number] REPORT SERV DATE: 01/12/17 DICTATED BY: JOAQUIN CLARK DATE: 01/12/17 REPORT STATUS : Draft TRANSCRIBED BY: FERNANDA DATE: 01/12/17 FAMILY HISTORY: Family history is obtained from the chart. It is significant for coronary artery disease in the patient's father and brother. The patient's mother had diabetes and hypertension and coronary artery disease. SOCIAL HISTORY: The patient is a retired nurse. She has never smoked and does not use alcohol or illicit medications. REVIEW OF SYSTEMS: Eleven system review of systems is unable to be obtained. The patient does note pain "all over." It is also significant for left-sided weakness. PHYSICAL EXAMINATION: VITAL SIGNS: Temperature 97.8, pulse 75, respirations 16, blood pressure 120/61. GENERAL: Chronically ill-appearing, elderly white female, who is anxious. HEAD: Normocephalic and atraumatic. EYES: Anicteric extraocular movements are intact. OROPHARYNX: Dry oropharynx without thrush or mucositis. LYMPH Node SURVEY: No palpable cervical or supraclavicular lymphadenopathy. PULMONARY: Coarse breath sounds bilaterally. CARDIAC: Irregularly irregular with systolic murmur noted. ABDOMEN: Soft, mildly distended. Bowel sounds are present, but diminished. No palpable masses. EXTREMITIES: Lower extremity edema is present bilaterally. NEUROLOGIC: Difficult exam as the patient does not follow commands due to delirium. However, there appears to be left upper and left lower extremity weakness. PSYCHIATRIC: Anxious and delirious. SKIN: No petechial rash. No purpura. LABORATORY STUDIES: Please see the history of present illness for discussion of the platelets. CBC 3: White count 17.6, hemoglobin 8.4, hematocrit 25%, platelets 142. CBC 01/12: Significant for platelet count of 37. Chemistries 3/2: Sodium 132, potassium 3.6, creatinine 0.76. Liver function tests 01/10: Albumin 2.9, alkaline phosphatase 143, otherwise unremarkable. 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 1. I agree with stoppage of all heparin products. This is very suspicious for HIT. 2. I agree with stoppage of warfarin, until the platelet count normalizes. Consultation Report [place] [address] [place]. [address] NAME: OLENA MÉNDEZ : 40 STATUS : ADM IN PAT#: [id number] AGE: 76 ADM/REG DATE : 01/01/17 MR#: [id number] REPORT SERV DATE: 01/12/17 DICTATED BY: JOAQUIN CLARK. DATE: 01/12/17 REPORT STATUS : Draft TRANSCRIBED BY: FERNANDA DATE: 01/12/17 3. Await RENETTA confirmation test. 4. I would recommend decreasing the argatroban dose, to follow the "liver dysfunction" protocol. [facility]/FERNANDA Joaquin Clark M.D. / [id number] CC: Lexi Luis M.D.
--- NOTE | ~2017-01-01 | EGD ---
EGD REPORT [facility] [address] [address] NAME: OLENA MÉNDEZ : 40 STATUS : ADM IN PAT#: [id number] AGE: 76 ADM/REG DATE : 01/01/17 MR#: [id number] REPORT SERV DATE: 01/25/17 DICTATED BY: NICO LI DATE: 01/25/17 REPORT STATUS : Draft [facility]: [facility] DATE: 01/25/17 Endoscopy Center Patient Name: Olena Méndez Date of : 1940 Attending MD: NICO LI MD Procedure Date No Time: 01/25/2017 Procedure: Upper GI endoscopy Indications: Place PEG because patient is unable to eat, Place PEG due to impaired swallowing Medicines: Monitored Anesthesia Care Complications: No immediate complications. Estimated blood loss: Minimal. Procedure: After obtaining informed consent, the endoscope was passed under direct vision. Throughout the procedure, the patient's blood pressure, pulse, and oxygen saturations were monitored continuously. The GIF [id number] was introduced through the mouth, and advanced to the second part of duodenum. The upper GI endoscopy was accomplished without difficulty. The patient tolerated the procedure well. Findings: No gross lesions were noted in the entire esophagus. The examined duodenum was normal. No gross lesions were noted in the entire examined stomach. The patient was placed in the supine position for PEG placement. The stomach was insufflated to appose gastric and abdominal jordan. A site was located in the body of the stomach with excellent transillumination and manual external pressure for placement. The abdominal wall was marked and prepped in a sterile manner. The area was anesthetized with 4 mL of 1% lidocaine. The trocar needle was introduced through the abdominal wall and into the stomach under direct endoscopic view. A snare was introduced through the endoscope and opened in the gastric lumen. The guide wire was passed through the trocar and into the open snare. The snare was closed around the guide wire. The endoscope and snare were removed, pulling the wire out through the mouth. A skin incision was made at the site of needle insertion. The externally removable 20 Fr EndoVive Safety gastrostomy tube was lubricated. The G-tube was passed over the guide wire through the mouth, and into the stomach. The trocar needle was removed, and the gastrostomy tube was pulled out from the stomach through the skin. The guide wire was removed, and the external bumper attached to the gastrostomy tube. The feeding tube was then cut to an appropriate length. The final position of the gastrostomy tube was confirmed by skin marking noted to be 3 cm at the external bumper. The final tension and compression of the abdominal wall by the PEG tube and EGD REPORT [address] [place]. [address] NAME: OLENA MÉNDEZ : 40 STATUS : ADM IN [facility]#: [id number] AGE: 76 ADM/REG DATE : 01/01/17 MR#: [id number] REPORT SERV DATE: 01/25/17 DICTATED BY: NICO LI DATE: 01/25/17 REPORT STATUS : Draft TRANSCRIBED BY: [employer] DATE: 01/25/17 external bumper were checked and revealed that the bumper was loose and lightly touching the skin. The feeding tube was capped, and the tube site was cleaned and dressed. Impression: - An externally removable PEG placement was successfully completed. Recommendation: - Return patient to hospital [facility] for ongoing care. - Please follow the post-PEG recommendations including: Nutrition consult for formula and volume, antibiotic ointment to site, change dressing once per day, clean site with soap and water daily and dry thoroughly, remove dressing after 2 weeks, NPO x4 hrs then water today, may use PEG today for meds and water and may use PEG tomorrow for feedings. Procedure Code(s): --- Professional --- 91417, Esophagogastroduodenoscopy, flexible, transoral; with directed placement of percutaneous gastrostomy tube Diagnosis Code(s): --- Professional --- R63.3, Feeding difficulties Z43.1, Encounter for attention to gastrostomy R13.10, Dysphagia, unspecified CPT copyright 2013 [employer] [place] [employer]. All rights reserved. The codes documented in this report are preliminary and upon certified medical records coder review may be revised to meet current compliance requirements. Nico Li MD NICO LI MD 01/25/2017 8:02 AM This report has been signed electronically. Number of Addenda: 0 Note Initiated On: 01/25/2017 7:59 AM [address] [place] [address]
[~2017-01-01 08:07] MED LIST: NORV5 PO
[2017-01-01 09:08] LABS: BASOPHILS 0 %; EOSINOPHILS 0 %; HEMATOCRIT 42.4 % (36.0-48.0); HEMOGLOBIN 14.8 g/dL (12.0-16.0); IMMATURE GRANULOCYTES 0.6 %; IMMATURE GRANULOCYTES ABSOLUTE 0.04 10/3/uL (0.0-0.11); LYMPHOCYTES 15.6 %; LYMPHOCYTES ABSOLUTE 1.09 10/3/uL (0.67-4.30); MEAN CORPUS HGB CONC 34.9 g/dL (32.0-36.0); MEAN CORPUSCULAR HEMOGLOB 29.4 pg (26.0-34.0); MEAN PLATELET VOLUME 9.6 fL (9.2-13.0); MONOCYTES 0.7 %; MONOCYTES ABSOLUTE 0.05 10/3/uL (0.21-1.20); NEUTROPHILS 83.1 %; NEUTROPHILS ABSOLUTE 5.82 10/3/uL (2.02-8.40); RBC DISTRIBUTION WIDTH 12.5 % (12.0-16.0); RED CELL COUNT 5.03 10/6/uL (4.0-5.6)
[2017-01-01 09:09] LABS: MANUAL DIFF NO %; MEAN CORPUSCULAR VOLUME 84.3 fL (80-100); PLATELET COUNT 346 10/3/uL (150-400)
[2017-01-01 09:22] LABS: BUN (BLOOD UREA NITROGEN) 16 MG/DL (6-23); CALCIUM, SERUM 9.5 MG/DL (8.5-10.4); CHLORIDE, SERUM 102 MMOL/L (96-112); CHOL/HDL RATIO(NOT ORDER) 5.1 (0-5); CHOLESTEROL 352 MG/DL (< 200); CO2 (CARBON DIOXIDE) 23 MMOL/L (24-34); CREATININE 0.77 MG/DL (0.55-1.02); GFR AFRICAN AMERICAN 87 ML/MIN (>=60); GFR NON AFRICAN AMERICAN 75 ML/MIN (>=60); GLUCOSE, SERUM 141 MG/DL (60-99); HDL CHOLESTEROL 69 MG/DL (> 49); LDL CHOLESTEROL 253 MG/DL (< 130); NON-HDL CHOLESTEROL 283 MG/DL (< 160); POTASSIUM, SERUM 4.3 MMOL/L (3.5-5.3); SODIUM, SERUM 138 MMOL/L (135-148); TRIGLYCERIDE 152 MG/DL (< 150)
[2017-01-02 05:25] LABS: BASOPHILS 0.1 %; BASOPHILS ABSOLUTE 0.01 10/3/uL (0.0-0.16); EOSINOPHILS 0 %; HEMATOCRIT 40.4 % (36.0-48.0); HEMOGLOBIN 13.5 g/dL (12.0-16.0); IMMATURE GRANULOCYTES 0.3 %; IMMATURE GRANULOCYTES ABSOLUTE 0.05 10/3/uL (0.0-0.11); LYMPHOCYTES 10.3 %; LYMPHOCYTES ABSOLUTE 1.55 10/3/uL (0.67-4.30); MEAN CORPUS HGB CONC 33.4 g/dL (32.0-36.0); MEAN CORPUSCULAR HEMOGLOB 29.1 pg (26.0-34.0); MEAN PLATELET VOLUME 9.9 fL (9.2-13.0); MONOCYTES 5.4 %; MONOCYTES ABSOLUTE 0.81 10/3/uL (0.21-1.20); NEUTROPHILS 83.9 %; PLATELET COUNT 336 10/3/uL (150-400); RBC DISTRIBUTION WIDTH 12.6 % (12.0-16.0); RED CELL COUNT 4.64 10/6/uL (4.0-5.6)
[2017-01-02 05:29] LABS: MANUAL DIFF NO %; MEAN CORPUSCULAR VOLUME 87.1 fL (80-100)
[2017-01-02 05:52] LABS: BUN (BLOOD UREA NITROGEN) 15 MG/DL (6-23); CALCIUM, SERUM 9.2 MG/DL (8.5-10.4); CHLORIDE, SERUM 103 MMOL/L (96-112); CO2 (CARBON DIOXIDE) 25 MMOL/L (24-34); CREATININE 0.72 MG/DL (0.55-1.02); GFR AFRICAN AMERICAN 94 ML/MIN (>=60); GFR NON AFRICAN AMERICAN 81 ML/MIN (>=60); GLUCOSE, SERUM 116 MG/DL (60-99); POTASSIUM, SERUM 3.8 MMOL/L (3.5-5.3); SODIUM, SERUM 140 MMOL/L (135-148)
[2017-01-03 06:22] LABS: BASOPHILS 0.1 %; BASOPHILS ABSOLUTE 0.01 10/3/uL (0.0-0.16); EOSINOPHILS 0.2 %; EOSINOPHILS ABSOLUTE 0.02 10/3/uL (0.0-0.53); HEMATOCRIT 38.7 % (36.0-48.0); HEMOGLOBIN 12.6 g/dL (12.0-16.0); IMMATURE GRANULOCYTES 0.2 %; IMMATURE GRANULOCYTES ABSOLUTE 0.02 10/3/uL (0.0-0.11); LYMPHOCYTES 23.9 %; MANUAL DIFF NO %; MEAN CORPUS HGB CONC 32.6 g/dL (32.0-36.0); MEAN CORPUSCULAR HEMOGLOB 28.9 pg (26.0-34.0); MEAN CORPUSCULAR VOLUME 88.8 fL (80-100); MONOCYTES ABSOLUTE 0.94 10/3/uL (0.21-1.20); NEUTROPHILS 66.6 %; NEUTROPHILS ABSOLUTE 6.96 10/3/uL (2.02-8.40); PLATELET COUNT 280 10/3/uL (150-400); RBC DISTRIBUTION WIDTH 12.7 % (12.0-16.0); RED CELL COUNT 4.36 10/6/uL (4.0-5.6); WHITE BLOOD CELLS 10.5 10/3/uL (4.5-10.5)
[2017-01-03 06:25] LABS: INTERNATIONAL NORMAL RATI 1.1 UNITS (-); PROTIME (NOT ORD) 13.9 SEC (12.0-14.5)
[2017-01-03 06:32] LABS: A/G RATIO 1.2 (0.7-1.9); ALKALINE PHOSPHATASE 90 U/L (45-117); BUN (BLOOD UREA NITROGEN) 16 MG/DL (6-23); CALCIUM, SERUM 8.6 MG/DL (8.5-10.4); CHLORIDE, SERUM 101 MMOL/L (96-112); CO2 (CARBON DIOXIDE) 27 MMOL/L (24-34); CREATININE 0.68 MG/DL (0.55-1.02); GFR AFRICAN AMERICAN 98 ML/MIN (>=60); GFR NON AFRICAN AMERICAN 85 ML/MIN (>=60); POTASSIUM, SERUM 3.9 MMOL/L (3.5-5.3); SGOT(AST) 12 U/L (5-40); SGPT(ALT) 15 U/L (5-65); SODIUM, SERUM 139 MMOL/L (135-148); TOTAL BILIRUBIN 0.8 MG/DL (0-1.2); TOTAL PROTEIN 6.5 G/DL (6.0-8.5)
[2017-01-03 06:34] LABS: ALBUMIN 3.5 G/DL (3.5-5.0); GLUCOSE, SERUM 86 MG/DL (60-99)
[2017-01-04 11:08] LABS: ASCORBIC ACID (UR NOT ORDER) NEG (NEG); BILIRUBIN, URINE NEGATIVE (NEG); KETONE, URINE NEGATIVE (NEG); LEUKOCYTE ESTERASE(NOT OR NEG (NEG); WBC (NOT ORDERED) (RFLEX) < 1 (0-5)
[2017-01-05 03:17] LABS: BASOPHILS 0.1 %; BASOPHILS ABSOLUTE 0.01 10/3/uL (0.0-0.16); EOSINOPHILS 1.3 %; EOSINOPHILS ABSOLUTE 0.11 10/3/uL (0.0-0.53); HEMOGLOBIN 11.3 g/dL (12.0-16.0); IMMATURE GRANULOCYTES 0.3 %; IMMATURE GRANULOCYTES ABSOLUTE 0.03 10/3/uL (0.0-0.11); LYMPHOCYTES ABSOLUTE 2.37 10/3/uL (0.67-4.30); MEAN CORPUS HGB CONC 32.8 g/dL (32.0-36.0); MEAN CORPUSCULAR HEMOGLOB 28.2 pg (26.0-34.0); MEAN PLATELET VOLUME 10.1 fL (9.2-13.0); MONOCYTES 9.4 %; MONOCYTES ABSOLUTE 0.83 10/3/uL (0.21-1.20); NEUTROPHILS 61.9 %; NEUTROPHILS ABSOLUTE 5.44 10/3/uL (2.02-8.40); PLATELET COUNT 243 10/3/uL (150-400); RBC DISTRIBUTION WIDTH 12.5 % (12.0-16.0); RED CELL COUNT 4.01 10/6/uL (4.0-5.6); WHITE BLOOD CELLS 8.8 10/3/uL (4.5-10.5)
[2017-01-05 03:19] LABS: HEMATOCRIT 34.5 % (36.0-48.0); MANUAL DIFF NO %
[2017-01-05 03:25] LABS: INTERNATIONAL NORMAL RATI 1.1 UNITS (-); PARTIAL THROMBO TIME 79.2 SEC (22.5-37.2); PROTIME (NOT ORD) 14.4 SEC (12.0-14.5)
[2017-01-05 03:45] LABS: ALKALINE PHOSPHATASE 91 U/L (45-117); CALCIUM, SERUM 8.5 MG/DL (8.5-10.4); CHLORIDE, SERUM 100 MMOL/L (96-112); CO2 (CARBON DIOXIDE) 28 MMOL/L (24-34); CREATININE 0.72 MG/DL (0.55-1.02); GFR AFRICAN AMERICAN 94 ML/MIN (>=60); GFR NON AFRICAN AMERICAN 81 ML/MIN (>=60); GLOBULIN 3.1 G/DL (2.5-4.1); POTASSIUM, SERUM 3.6 MMOL/L (3.5-5.3); SGOT(AST) 11 U/L (5-40); SGPT(ALT) 13 U/L (5-65); SODIUM, SERUM 138 MMOL/L (135-148); TOTAL BILIRUBIN 0.5 MG/DL (0-1.2); TOTAL PROTEIN 6.1 G/DL (6.0-8.5)
[2017-01-05 03:49] LABS: BUN (BLOOD UREA NITROGEN) 12 MG/DL (6-23); DIRECT BILIRUBIN < 0.1 MG/DL (0.0-0.4); GLUCOSE, SERUM 124 MG/DL (60-99); INDIRECT BILIRUBIN(NOT ORDER) 0.4 MG/DL (0.1-0.9)
[2017-01-05 18:07] LABS: BE (BASE EXCESS) -2.5 MEQ/L (0 +/- 2.5); CARBOXYHEMOGLOBIN 0.2 % (0-3); HCO3 (ACTUAL BICARBONATE) 22.2 MEQ/L (23-27); HEMOBLOGIN CONTENT 12.6 G/DL (12-16); INSTRUMENT SERIAL # 11843; METHEMOGLOBIN 0.7 % (0-3); MODE SIMV; O2 CONTENT 18.2 VOL% (18-24); OPERATOR ID 19104; PCO2 (CO2 TENSION) 38 MMHG (35-45); PO2 (O2 TENSION) 331 MMHG (79-93); SAMPLE Arterial; TIDAL VOLUME 650 ML; pH 7.39 (7.37-7.43)
[2017-01-05 18:24] LABS: HEMATOCRIT 34.6 % (36.0-48.0); HEMOGLOBIN 11.6 g/dL (12.0-16.0)
[2017-01-05 18:25] LABS: PLATELET COUNT 139 10/3/uL (150-400); TEG - ANGLE 71.1 DEG (53-72); TEG - COAGULATION INDEX 0.3 (-3 TO 3); TEG - MAXIMUM AMPLITUDE 62.9 MM (50-70); TEG - RATE 6.9 MIN (5.0-10.0)
[2017-01-05 18:32] LABS: INTERNATIONAL NORMAL RATI 1.6 UNITS (-); PARTIAL THROMBO TIME 47.2 SEC (22.5-37.2)
[2017-01-05 18:33] LABS: PROTIME (NOT ORD) 19.1 SEC (12.0-14.5)
[2017-01-05 21:31] LABS: BUN (BLOOD UREA NITROGEN) 14 MG/DL (6-23); CALCIUM, SERUM 8.4 MG/DL (8.5-10.4); CHLORIDE, SERUM 115 MMOL/L (96-112); CO2 (CARBON DIOXIDE) 22 MMOL/L (24-34); GFR AFRICAN AMERICAN 72 ML/MIN (>=60); GFR NON AFRICAN AMERICAN 62 ML/MIN (>=60); GLUCOSE, SERUM 115 MG/DL (60-99); POTASSIUM, SERUM 4.9 MMOL/L (3.5-5.3); SODIUM, SERUM 148 MMOL/L (135-148)
[2017-01-05 22:18] LABS: MEAN CORPUS HGB CONC 33.9 g/dL (32.0-36.0); MEAN CORPUSCULAR HEMOGLOB 29.8 pg (26.0-34.0); MEAN CORPUSCULAR VOLUME 87.9 fL (80-100); MEAN PLATELET VOLUME 10.5 fL (9.2-13.0); RBC DISTRIBUTION WIDTH 12.4 % (12.0-16.0); RED CELL COUNT 3.96 10/6/uL (4.0-5.6)
[2017-01-05 22:20] LABS: WHITE BLOOD CELLS 25.1 10/3/uL (4.5-10.5)
[2017-01-05 22:22] LABS: MANUAL DIFF YES %
[2017-01-05 22:39] LABS: BAND NEUTROPHILS 6 %; LYMPHOCYTES 4 %; MONOCYTES 1 %; MONOCYTES ABSOLUTE (CALC) 0.25 10/3/uL (0.21-1.20); NEUTROPHILS ABSOLUTE (CALC) 23.85 10/3/uL (2.02-8.40); PLATELET ESTIMATE SLT DEC (ADEQUATE); SEGMENTED NEUTROPHIL (0) 89 %; TOTAL NUCLEATED CELLS 100
[2017-01-06 00:19] LABS: HEMATOCRIT 25.3 % (36.0-48.0); HEMOGLOBIN 8.2 g/dL (12.0-16.0)
[2017-01-06 00:30] LABS: POTASSIUM, SERUM 4.3 MMOL/L (3.5-5.3)
[2017-01-06 03:19] LABS: BE (BASE EXCESS) -3.7 MEQ/L (0 +/- 2.5); CARBOXYHEMOGLOBIN 0.3 % (0-3); DEVICE NC; HEMOBLOGIN CONTENT 9.1 G/DL (12-16); INSTRUMENT SERIAL # 11843; METHEMOGLOBIN 0.8 % (0-3); O2 CONTENT 12.2 VOL% (18-24); OPERATOR ID 32193; PCO2 (CO2 TENSION) 31 MMHG (35-45); PO2 (O2 TENSION) 88 MMHG (79-93); SAMPLE Arterial; pH 7.43 (7.37-7.43)
[2017-01-06 04:12] LABS: BASOPHILS 0 %; EOSINOPHILS 0 %; IMMATURE GRANULOCYTES 0.2 %; IMMATURE GRANULOCYTES ABSOLUTE 0.03 10/3/uL (0.0-0.11); LYMPHOCYTES ABSOLUTE 0.66 10/3/uL (0.67-4.30); MEAN CORPUSCULAR HEMOGLOB 27.8 pg (26.0-34.0); MEAN CORPUSCULAR VOLUME 86.8 fL (80-100); MEAN PLATELET VOLUME 10.6 fL (9.2-13.0); MONOCYTES 5.3 %; MONOCYTES ABSOLUTE 0.71 10/3/uL (0.21-1.20); NEUTROPHILS 89.5 %; NEUTROPHILS ABSOLUTE 11.92 10/3/uL (2.02-8.40); PLATELET COUNT 102 10/3/uL (150-400); RBC DISTRIBUTION WIDTH 12.8 % (12.0-16.0)
[2017-01-06 04:14] LABS: RED CELL COUNT 2.88 10/6/uL (4.0-5.6); WHITE BLOOD CELLS 13.3 10/3/uL (4.5-10.5)
[2017-01-06 04:15] LABS: MANUAL DIFF NO %
[2017-01-06 04:16] LABS: INTERNATIONAL NORMAL RATI 1.5 UNITS (-); PROTIME (NOT ORD) 17.9 SEC (12.0-14.5)
[2017-01-06 04:17] LABS: BUN (BLOOD UREA NITROGEN) 16 MG/DL (6-23); CALCIUM, SERUM 8.4 MG/DL (8.5-10.4); CHLORIDE, SERUM 116 MMOL/L (96-112); CO2 (CARBON DIOXIDE) 23 MMOL/L (24-34); CREATININE 0.76 MG/DL (0.55-1.02); GFR AFRICAN AMERICAN 88 ML/MIN (>=60); GFR NON AFRICAN AMERICAN 76 ML/MIN (>=60); GLUCOSE, SERUM 95 MG/DL (60-99); POTASSIUM, SERUM 4.2 MMOL/L (3.5-5.3); SODIUM, SERUM 149 MMOL/L (135-148)
[2017-01-06 15:21] LABS: HEMATOCRIT 21.2 % (36.0-48.0); HEMOGLOBIN 6.9 g/dL (12.0-16.0)
[2017-01-06 21:53] LABS: HEMATOCRIT 25.3 % (36.0-48.0); HEMOGLOBIN 8.5 g/dL (12.0-16.0)
[2017-01-06 21:59] LABS: PHOSPHORUS, SERUM 4.4 MG/DL (2.5-4.5); POTASSIUM, SERUM 4.1 MMOL/L (3.5-5.3)
[2017-01-07 03:37] LABS: BASOPHILS 0 %; EOSINOPHILS 0 %; HEMATOCRIT 23.2 % (36.0-48.0); HEMOGLOBIN 7.8 g/dL (12.0-16.0); IMMATURE GRANULOCYTES 0.4 %; IMMATURE GRANULOCYTES ABSOLUTE 0.05 10/3/uL (0.0-0.11); LYMPHOCYTES 10.2 %; LYMPHOCYTES ABSOLUTE 1.23 10/3/uL (0.67-4.30); MEAN CORPUS HGB CONC 33.6 g/dL (32.0-36.0); MEAN CORPUSCULAR HEMOGLOB 30.1 pg (26.0-34.0); MEAN PLATELET VOLUME 11.4 fL (9.2-13.0); MONOCYTES 10.5 %; MONOCYTES ABSOLUTE 1.26 10/3/uL (0.21-1.20); NEUTROPHILS 78.9 %; NEUTROPHILS ABSOLUTE 9.51 10/3/uL (2.02-8.40); RBC DISTRIBUTION WIDTH 13.5 % (12.0-16.0); RED CELL COUNT 2.59 10/6/uL (4.0-5.6); WHITE BLOOD CELLS 12.1 10/3/uL (4.5-10.5)
[2017-01-07 03:38] LABS: MEAN CORPUSCULAR VOLUME 89.6 fL (80-100); PLATELET COUNT 65 10/3/uL (150-400)
[2017-01-07 03:39] LABS: MANUAL DIFF NO %
[2017-01-07 03:46] LABS: BUN (BLOOD UREA NITROGEN) 21 MG/DL (6-23); CALCIUM, SERUM 8.6 MG/DL (8.5-10.4); CHLORIDE, SERUM 107 MMOL/L (96-112); CO2 (CARBON DIOXIDE) 22 MMOL/L (24-34); CREATININE 0.86 MG/DL (0.55-1.02); GFR AFRICAN AMERICAN 76 ML/MIN (>=60); GFR NON AFRICAN AMERICAN 66 ML/MIN (>=60); GLUCOSE, SERUM 100 MG/DL (60-99); POTASSIUM, SERUM 4.5 MMOL/L (3.5-5.3); SODIUM, SERUM 140 MMOL/L (135-148)
[2017-01-07 04:30] LABS: PLATELET ESTIMATE DEC (ADEQUATE)
[2017-01-07 04:31] LABS: POLYCHROMASIA 1+ (2-5/OIF) (0-1/OIF)
[2017-01-07 05:22] LABS: INSTRUMENT SERIAL # 11843
[2017-01-07 05:23] LABS: BE (BASE EXCESS) -9.2 MEQ/L (0 +/- 2.5); CARBOXYHEMOGLOBIN 0.3 % (0-3); DEVICE NRB; HCO3 (ACTUAL BICARBONATE) 17.7 MEQ/L (23-27); HEMOBLOGIN CONTENT 9.6 G/DL (12-16); METHEMOGLOBIN 0.6 % (0-3); OPERATOR ID 30013; PCO2 (CO2 TENSION) 43 MMHG (35-45); PO2 (O2 TENSION) 291 MMHG (79-93); SAMPLE Arterial; pH 7.23 (7.37-7.43)
[2017-01-07 16:38] LABS: POTASSIUM, SERUM 4.1 MMOL/L (3.5-5.3)
[2017-01-07 23:01] LABS: HEMATOCRIT 23.1 % (36.0-48.0); HEMOGLOBIN 7.9 g/dL (12.0-16.0)
[2017-01-07 23:09] LABS: POTASSIUM, SERUM 4.1 MMOL/L (3.5-5.3)
[2017-01-08 03:32] LABS: BASOPHILS 0.1 %; BASOPHILS ABSOLUTE 0.01 10/3/uL (0.0-0.16); EOSINOPHILS 0 %; HEMATOCRIT 23.1 % (36.0-48.0); HEMOGLOBIN 7.8 g/dL (12.0-16.0); IMMATURE GRANULOCYTES 0.6 %; IMMATURE GRANULOCYTES ABSOLUTE 0.07 10/3/uL (0.0-0.11); LYMPHOCYTES 10.1 %; LYMPHOCYTES ABSOLUTE 1.27 10/3/uL (0.67-4.30); MEAN CORPUS HGB CONC 33.8 g/dL (32.0-36.0); MEAN CORPUSCULAR HEMOGLOB 30.2 pg (26.0-34.0); MEAN CORPUSCULAR VOLUME 89.5 fL (80-100); MEAN PLATELET VOLUME 11.4 fL (9.2-13.0); MONOCYTES 12.2 %; MONOCYTES ABSOLUTE 1.54 10/3/uL (0.21-1.20); NEUTROPHILS ABSOLUTE 9.69 10/3/uL (2.02-8.40); PLATELET COUNT 62 10/3/uL (150-400); RBC DISTRIBUTION WIDTH 13.6 % (12.0-16.0); RED CELL COUNT 2.58 10/6/uL (4.0-5.6); WHITE BLOOD CELLS 12.6 10/3/uL (4.5-10.5)
[2017-01-08 03:34] LABS: BUN (BLOOD UREA NITROGEN) 33 MG/DL (6-23); CALCIUM, SERUM 8.3 MG/DL (8.5-10.4); CHLORIDE, SERUM 105 MMOL/L (96-112); CO2 (CARBON DIOXIDE) 22 MMOL/L (24-34); CREATININE 0.94 MG/DL (0.55-1.02); GFR AFRICAN AMERICAN 68 ML/MIN (>=60); GFR NON AFRICAN AMERICAN 59 ML/MIN (>=60); GLUCOSE, SERUM 98 MG/DL (60-99); POTASSIUM, SERUM 4.1 MMOL/L (3.5-5.3); SODIUM, SERUM 138 MMOL/L (135-148)
[2017-01-08 03:37] LABS: MANUAL DIFF NO %
[2017-01-08 04:10] LABS: PLATELET ESTIMATE DEC (ADEQUATE); POLYCHROMASIA 1+ (2-5/OIF) (0-1/OIF)
[2017-01-08 18:25] LABS: POTASSIUM, SERUM 3.7 MMOL/L (3.5-5.3)
[2017-01-09 04:08] LABS: BASOPHILS 0.1 %; BASOPHILS ABSOLUTE 0.01 10/3/uL (0.0-0.16); EOSINOPHILS 0.1 %; EOSINOPHILS ABSOLUTE 0.01 10/3/uL (0.0-0.53); HEMATOCRIT 23.2 % (36.0-48.0); HEMOGLOBIN 7.8 g/dL (12.0-16.0); IMMATURE GRANULOCYTES 0.3 %; IMMATURE GRANULOCYTES ABSOLUTE 0.04 10/3/uL (0.0-0.11); LYMPHOCYTES 14.2 %; LYMPHOCYTES ABSOLUTE 1.82 10/3/uL (0.67-4.30); MEAN CORPUS HGB CONC 33.6 g/dL (32.0-36.0); MEAN CORPUSCULAR HEMOGLOB 30.1 pg (26.0-34.0); MEAN CORPUSCULAR VOLUME 89.6 fL (80-100); MONOCYTES 10.4 %; MONOCYTES ABSOLUTE 1.33 10/3/uL (0.21-1.20); NEUTROPHILS 74.9 %; NEUTROPHILS ABSOLUTE 9.61 10/3/uL (2.02-8.40); RBC DISTRIBUTION WIDTH 13.5 % (12.0-16.0); RED CELL COUNT 2.59 10/6/uL (4.0-5.6); WHITE BLOOD CELLS 12.8 10/3/uL (4.5-10.5)
[2017-01-09 04:09] LABS: MANUAL DIFF NO %; PLATELET COUNT 81 10/3/uL (150-400)
[2017-01-09 04:13] LABS: INTERNATIONAL NORMAL RATI 1.3 UNITS (-); PROTIME (NOT ORD) 16.5 SEC (12.0-14.5)
[2017-01-09 04:18] LABS: CALCIUM, SERUM 7.8 MG/DL (8.5-10.4); CHLORIDE, SERUM 103 MMOL/L (96-112); CO2 (CARBON DIOXIDE) 23 MMOL/L (24-34); CREATININE 0.68 MG/DL (0.55-1.02); GFR AFRICAN AMERICAN 98 ML/MIN (>=60); GFR NON AFRICAN AMERICAN 85 ML/MIN (>=60); GLUCOSE, SERUM 103 MG/DL (60-99); POTASSIUM, SERUM 4.2 MMOL/L (3.5-5.3); SODIUM, SERUM 136 MMOL/L (135-148)
[2017-01-09 04:24] LABS: BUN (BLOOD UREA NITROGEN) 38 MG/DL (6-23)
[2017-01-09 15:10] LABS: BUN (BLOOD UREA NITROGEN) 37 MG/DL (6-23); CHLORIDE, SERUM 106 MMOL/L (96-112); CO2 (CARBON DIOXIDE) 20 MMOL/L (24-34); CREATININE 0.55 MG/DL (0.55-1.02); GFR AFRICAN AMERICAN 106 ML/MIN (>=60); GFR NON AFRICAN AMERICAN 91 ML/MIN (>=60); SODIUM, SERUM 138 MMOL/L (135-148)
[2017-01-09 15:11] LABS: CALCIUM, SERUM 6.4 MG/DL (8.5-10.4); GLUCOSE, SERUM 130 MG/DL (60-99); POTASSIUM, SERUM 3.1 MMOL/L (3.5-5.3)
[2017-01-10 04:42] LABS: BASOPHILS 0.2 %; BASOPHILS ABSOLUTE 0.02 10/3/uL (0.0-0.16); EOSINOPHILS 0.5 %; EOSINOPHILS ABSOLUTE 0.06 10/3/uL (0.0-0.53); HEMATOCRIT 22.9 % (36.0-48.0); HEMOGLOBIN 7.6 g/dL (12.0-16.0); IMMATURE GRANULOCYTES 1.6 %; IMMATURE GRANULOCYTES ABSOLUTE 0.21 10/3/uL (0.0-0.11); LYMPHOCYTES 11.8 %; LYMPHOCYTES ABSOLUTE 1.54 10/3/uL (0.67-4.30); MANUAL DIFF NO %; MEAN CORPUS HGB CONC 33.2 g/dL (32.0-36.0); MEAN CORPUSCULAR HEMOGLOB 29.6 pg (26.0-34.0); MEAN CORPUSCULAR VOLUME 89.1 fL (80-100); MEAN PLATELET VOLUME 10.4 fL (9.2-13.0); MONOCYTES 10.5 %; MONOCYTES ABSOLUTE 1.37 10/3/uL (0.21-1.20); NEUTROPHILS 75.4 %; NEUTROPHILS ABSOLUTE 9.86 10/3/uL (2.02-8.40); NUCLEATED RED BLOOD CELLS 1.1 /100WBC (0-0); PLATELET COUNT 124 10/3/uL (150-400); RBC DISTRIBUTION WIDTH 13.3 % (12.0-16.0); RED CELL COUNT 2.57 10/6/uL (4.0-5.6); WHITE BLOOD CELLS 13.1 10/3/uL (4.5-10.5)
[2017-01-10 04:46] LABS: ALBUMIN 2.9 G/DL (3.5-5.0); BUN (BLOOD UREA NITROGEN) 36 MG/DL (6-23); CHLORIDE, SERUM 98 MMOL/L (96-112); CREATININE 0.66 MG/DL (0.55-1.02); GFR AFRICAN AMERICAN 99 ML/MIN (>=60); GFR NON AFRICAN AMERICAN 86 ML/MIN (>=60); GLUCOSE, SERUM 132 MG/DL (60-99); POTASSIUM, SERUM 3.6 MMOL/L (3.5-5.3); SGOT(AST) 57 U/L (5-40); SGPT(ALT) 38 U/L (5-65); SODIUM, SERUM 134 MMOL/L (135-148); TOTAL BILIRUBIN 0.6 MG/DL (0-1.2); TOTAL PROTEIN 5.3 G/DL (6.0-8.5)
[2017-01-10 04:47] LABS: A/G RATIO 1.2 (0.7-1.9); ALKALINE PHOSPHATASE 143 U/L (45-117); CALCIUM, SERUM 7.6 MG/DL (8.5-10.4); CO2 (CARBON DIOXIDE) 26 MMOL/L (24-34); GLOBULIN 2.4 G/DL (2.5-4.1)
[2017-01-10 18:10] LABS: CALCIUM, SERUM 7.8 MG/DL (8.5-10.4); CHLORIDE, SERUM 92 MMOL/L (96-112); CO2 (CARBON DIOXIDE) 28 MMOL/L (24-34); CREATININE 0.74 MG/DL (0.55-1.02); GFR AFRICAN AMERICAN 91 ML/MIN (>=60); GFR NON AFRICAN AMERICAN 79 ML/MIN (>=60); SODIUM, SERUM 131 MMOL/L (135-148)
[2017-01-10 18:13] LABS: BUN (BLOOD UREA NITROGEN) 31 MG/DL (6-23); GLUCOSE, SERUM 165 MG/DL (60-99)
[2017-01-11 01:37] LABS: CALCIUM, SERUM 7.6 MG/DL (8.5-10.4); CHLORIDE, SERUM 91 MMOL/L (96-112); CO2 (CARBON DIOXIDE) 29 MMOL/L (24-34); CREATININE 0.69 MG/DL (0.55-1.02); GFR AFRICAN AMERICAN 98 ML/MIN (>=60); GFR NON AFRICAN AMERICAN 85 ML/MIN (>=60); POTASSIUM, SERUM 3.4 MMOL/L (3.5-5.3); SODIUM, SERUM 132 MMOL/L (135-148)
[2017-01-11 01:38] LABS: BUN (BLOOD UREA NITROGEN) 27 MG/DL (6-23); GLUCOSE, SERUM 122 MG/DL (60-99)
[2017-01-11 04:13] LABS: HEMOGLOBIN 8.4 g/dL (12.0-16.0); MEAN CORPUS HGB CONC 33.6 g/dL (32.0-36.0); MEAN CORPUSCULAR HEMOGLOB 29.8 pg (26.0-34.0); MEAN CORPUSCULAR VOLUME 88.7 fL (80-100); MEAN PLATELET VOLUME 10.9 fL (9.2-13.0); PLATELET COUNT 142 10/3/uL (150-400); RBC DISTRIBUTION WIDTH 13.6 % (12.0-16.0); RED CELL COUNT 2.82 10/6/uL (4.0-5.6); WHITE BLOOD CELLS 17.6 10/3/uL (4.5-10.5)
[2017-01-11 04:14] LABS: MANUAL DIFF YES %
[2017-01-11 04:20] LABS: BUN (BLOOD UREA NITROGEN) 27 MG/DL (6-23); CALCIUM, SERUM 7.7 MG/DL (8.5-10.4); CHLORIDE, SERUM 93 MMOL/L (96-112); CO2 (CARBON DIOXIDE) 31 MMOL/L (24-34); CREATININE 0.76 MG/DL (0.55-1.02); GFR AFRICAN AMERICAN 88 ML/MIN (>=60); GFR NON AFRICAN AMERICAN 76 ML/MIN (>=60); GLUCOSE, SERUM 115 MG/DL (60-99); POTASSIUM, SERUM 3.6 MMOL/L (3.5-5.3); SODIUM, SERUM 132 MMOL/L (135-148)
[2017-01-11 04:31] LABS: INTERNATIONAL NORMAL RATI 1.3 UNITS (-); PROTIME (NOT ORD) 15.9 SEC (12.0-14.5)
[2017-01-11 07:20] LABS: BAND NEUTROPHILS 2 %; EOSINOPHILS 1 %; EOSINOPHILS ABSOLUTE (CALC) 0.18 10/3/uL (0.0-0.53); LYMPHOCYTES 14 %; LYMPHOCYTES ABSOLUTE (CALC) 2.46 10/3/uL (0.67-4.30); MONOCYTES 8 %; MONOCYTES ABSOLUTE (CALC) 1.41 10/3/uL (0.21-1.20); NEUTROPHILS ABSOLUTE (CALC) 13.55 10/3/uL (2.02-8.40); SEGMENTED NEUTROPHIL (0) 75 %; TOTAL NUCLEATED CELLS 100
[2017-01-11 07:21] LABS: PLATELET ESTIMATE SLT DEC (ADEQUATE); RBC MORPHOLOGY NORM (NORMAL)
[2017-01-11 13:22] LABS: BUN (BLOOD UREA NITROGEN) 25 MG/DL (6-23); CALCIUM, SERUM 7.7 MG/DL (8.5-10.4); CHLORIDE, SERUM 91 MMOL/L (96-112); CO2 (CARBON DIOXIDE) 31 MMOL/L (24-34); CREATININE 0.82 MG/DL (0.55-1.02); GFR AFRICAN AMERICAN 81 ML/MIN (>=60); GFR NON AFRICAN AMERICAN 70 ML/MIN (>=60); GLUCOSE, SERUM 131 MG/DL (60-99); POTASSIUM, SERUM 3.1 MMOL/L (3.5-5.3); SODIUM, SERUM 132 MMOL/L (135-148)
[2017-01-12 04:16] LABS: INTERNATIONAL NORMAL RATI 1.5 UNITS (-); PROTIME (NOT ORD) 17.9 SEC (12.0-14.5)
[2017-01-12 04:40] LABS: A/G RATIO 1.2 (0.7-1.9); ALBUMIN 3.1 G/DL (3.5-5.0); CALCIUM, SERUM 7.6 MG/DL (8.5-10.4); CHLORIDE, SERUM 93 MMOL/L (96-112); CO2 (CARBON DIOXIDE) 31 MMOL/L (24-34); CREATININE 0.92 MG/DL (0.55-1.02); GFR AFRICAN AMERICAN 70 ML/MIN (>=60); GFR NON AFRICAN AMERICAN 60 ML/MIN (>=60); GLOBULIN 2.5 G/DL (2.5-4.1); GLUCOSE, SERUM 137 MG/DL (60-99); POTASSIUM, SERUM 3.4 MMOL/L (3.5-5.3); SGOT(AST) 54 U/L (5-40); SGPT(ALT) 37 U/L (5-65); SODIUM, SERUM 132 MMOL/L (135-148); TOTAL PROTEIN 5.6 G/DL (6.0-8.5)
[2017-01-12 04:43] LABS: ALKALINE PHOSPHATASE 159 U/L (45-117); BUN (BLOOD UREA NITROGEN) 30 MG/DL (6-23); TOTAL BILIRUBIN 1.1 MG/DL (0-1.2)
[2017-01-12 07:32] LABS: INTERNATIONAL NORMAL RATI 1.7 UNITS (-); PROTIME (NOT ORD) 19.6 SEC (12.0-14.5)
[2017-01-12 07:34] LABS: PARTIAL THROMBO TIME 110.8 SEC (22.5-37.2)
[2017-01-12 07:43] LABS: HEMATOCRIT 26.5 % (36.0-48.0); HEMOGLOBIN 8.7 g/dL (12.0-16.0); MEAN CORPUS HGB CONC 32.8 g/dL (32.0-36.0); MEAN CORPUSCULAR HEMOGLOB 30.1 pg (26.0-34.0); MEAN CORPUSCULAR VOLUME 91.7 fL (80-100); MEAN PLATELET VOLUME 11.6 fL (9.2-13.0); PLATELET COUNT 37 10/3/uL (150-400); RBC DISTRIBUTION WIDTH 14.9 % (12.0-16.0); RED CELL COUNT 2.89 10/6/uL (4.0-5.6); WHITE BLOOD CELLS 20.4 10/3/uL (4.5-10.5)
[2017-01-12 07:45] LABS: MANUAL DIFF YES %
[2017-01-12 07:55] LABS: A/G RATIO 1.2 (0.7-1.9); ALKALINE PHOSPHATASE 157 U/L (45-117); BUN (BLOOD UREA NITROGEN) 27 MG/DL (6-23); CALCIUM, SERUM 7.8 MG/DL (8.5-10.4); CHLORIDE, SERUM 92 MMOL/L (96-112); CO2 (CARBON DIOXIDE) 31 MMOL/L (24-34); CREATININE 0.96 MG/DL (0.55-1.02); GFR AFRICAN AMERICAN 67 ML/MIN (>=60); GFR NON AFRICAN AMERICAN 57 ML/MIN (>=60); GLOBULIN 2.6 G/DL (2.5-4.1); GLUCOSE, SERUM 142 MG/DL (60-99); POTASSIUM, SERUM 3.5 MMOL/L (3.5-5.3); SGOT(AST) 52 U/L (5-40); SGPT(ALT) 37 U/L (5-65); SODIUM, SERUM 132 MMOL/L (135-148); TOTAL BILIRUBIN 1.2 MG/DL (0-1.2); TOTAL PROTEIN 5.6 G/DL (6.0-8.5); TROPONIN I 8.76 NG/ML (<0.05)
[2017-01-12 07:57] LABS: BAND NEUTROPHILS 3 %; IMMATURE GRANS ABSOLUTE (CALC) 0.61 10/3/uL (0.0-0.11); LYMPHOCYTES 8 %; LYMPHOCYTES ABSOLUTE (CALC) 1.63 10/3/uL (0.67-4.30); METAMYELOCYTES 2 %; MONOCYTES 6 %; MONOCYTES ABSOLUTE (CALC) 1.22 10/3/uL (0.21-1.20); MYELOCYTES 1 %; NEUTROPHILS ABSOLUTE (CALC) 16.93 10/3/uL (2.02-8.40); POIKILOCYTOSIS 1+ (5-10/OIF) (0-5/OIF); POLYCHROMASIA 2+ (5-10/OIF) (0-1/OIF); SEGMENTED NEUTROPHIL (0) 80 %; TEARDROP SHAPED RBCS OCC (0-2/OIF); TOTAL NUCLEATED CELLS 100
[2017-01-12 13:26] LABS: HEPARIN-INDUCED PLATELET AB POSITIVE (NEGATIVE); HIT PATIENT O.D. 1.133 OD (0.000-0.299)
[2017-01-13 05:04] LABS: HEMATOCRIT 26.4 % (36.0-48.0); HEMOGLOBIN 8.4 g/dL (12.0-16.0); MEAN CORPUS HGB CONC 31.8 g/dL (32.0-36.0); MEAN CORPUSCULAR VOLUME 94.3 fL (80-100); MEAN PLATELET VOLUME 10.4 fL (9.2-13.0); NUCLEATED RED BLOOD CELLS 5.4 /100WBC (0-0); RBC DISTRIBUTION WIDTH 16.1 % (12.0-16.0); WHITE BLOOD CELLS 13.8 10/3/uL (4.5-10.5)
[2017-01-13 05:05] LABS: MANUAL DIFF YES %; PLATELET COUNT 22 10/3/uL (150-400)
[2017-01-13 05:08] LABS: PARTIAL THROMBO TIME 55.9 SEC (22.5-37.2); PROTIME (NOT ORD) 31.2 SEC (12.0-14.5)
[2017-01-13 05:21] LABS: A/G RATIO 1.3 (0.7-1.9); ALBUMIN 2.9 G/DL (3.5-5.0); ALKALINE PHOSPHATASE 134 U/L (45-117); BUN (BLOOD UREA NITROGEN) 29 MG/DL (6-23); CALCIUM, SERUM 7.7 MG/DL (8.5-10.4); CHLORIDE, SERUM 95 MMOL/L (96-112); CO2 (CARBON DIOXIDE) 32 MMOL/L (24-34); CREATININE 0.79 MG/DL (0.55-1.02); GFR AFRICAN AMERICAN 84 ML/MIN (>=60); GFR NON AFRICAN AMERICAN 73 ML/MIN (>=60); GLOBULIN 2.2 G/DL (2.5-4.1); GLUCOSE, SERUM 106 MG/DL (60-99); POTASSIUM, SERUM 3.5 MMOL/L (3.5-5.3); SGOT(AST) 37 U/L (5-40); SGPT(ALT) 29 U/L (5-65); SODIUM, SERUM 135 MMOL/L (135-148); TOTAL PROTEIN 5.1 G/DL (6.0-8.5)
[2017-01-13 06:32] LABS: BAND NEUTROPHILS 7 %; HYPOCHROMIA 1+ (3-10/OIF) (0-2/OIF); IMMATURE GRANS ABSOLUTE (CALC) 0.69 10/3/uL (0.0-0.11); LYMPHOCYTES 10 %; LYMPHOCYTES ABSOLUTE (CALC) 1.38 10/3/uL (0.67-4.30); METAMYELOCYTES 5 %; MONOCYTES 8 %; NEUTROPHILS ABSOLUTE (CALC) 10.63 10/3/uL (2.02-8.40); SEGMENTED NEUTROPHIL (0) 70 %; TOTAL NUCLEATED CELLS 100
[2017-01-13 06:33] LABS: MACROCYTES 1+ (5-10/OIF) (0-5/OIF); POLYCHROMASIA 1+ (2-5/OIF) (0-1/OIF)
[2017-01-14 06:58] LABS: HEMATOCRIT 29.5 % (36.0-48.0); HEMOGLOBIN 9.3 g/dL (12.0-16.0); MEAN CORPUS HGB CONC 31.5 g/dL (32.0-36.0); MEAN CORPUSCULAR HEMOGLOB 30.7 pg (26.0-34.0); MEAN CORPUSCULAR VOLUME 97.4 fL (80-100); NUCLEATED RED BLOOD CELLS 4.6 /100WBC (0-0); PLATELET COUNT 19 10/3/uL (150-400); RBC DISTRIBUTION WIDTH 18.1 % (12.0-16.0); RED CELL COUNT 3.03 10/6/uL (4.0-5.6); WHITE BLOOD CELLS 15.7 10/3/uL (4.5-10.5)
[2017-01-14 06:59] LABS: MANUAL DIFF YES %; PARTIAL THROMBO TIME 58.9 SEC (22.5-37.2); PROTIME (NOT ORD) 31.2 SEC (12.0-14.5)
[2017-01-14 07:07] LABS: ALBUMIN 3.1 G/DL (3.5-5.0); CALCIUM, SERUM 8.3 MG/DL (8.5-10.4); CHLORIDE, SERUM 97 MMOL/L (96-112); CO2 (CARBON DIOXIDE) 31 MMOL/L (24-34); CREATININE 0.91 MG/DL (0.55-1.02); GFR AFRICAN AMERICAN 71 ML/MIN (>=60); GFR NON AFRICAN AMERICAN 61 ML/MIN (>=60); GLUCOSE, SERUM 104 MG/DL (60-99); POTASSIUM, SERUM 4.1 MMOL/L (3.5-5.3); SGOT(AST) 35 U/L (5-40); SGPT(ALT) 30 U/L (5-65); SODIUM, SERUM 137 MMOL/L (135-148); TOTAL PROTEIN 5.9 G/DL (6.0-8.5)
[2017-01-14 07:08] LABS: A/G RATIO 1.1 (0.7-1.9); ALKALINE PHOSPHATASE 152 U/L (45-117); BUN (BLOOD UREA NITROGEN) 34 MG/DL (6-23); GLOBULIN 2.8 G/DL (2.5-4.1); TOTAL BILIRUBIN 1.6 MG/DL (0-1.2)
[2017-01-14 07:20] LABS: ANISOCYTOSIS 1+ (5-10/OIF) (0-5/OIF); BAND NEUTROPHILS 6 %; LYMPHOCYTES 10 %; LYMPHOCYTES ABSOLUTE (CALC) 1.57 10/3/uL (0.67-4.30); MONOCYTES 6 %; MONOCYTES ABSOLUTE (CALC) 0.94 10/3/uL (0.21-1.20); NEUTROPHILS ABSOLUTE (CALC) 13.19 10/3/uL (2.02-8.40); POIKILOCYTOSIS 1+ (5-10/OIF) (0-5/OIF); SEGMENTED NEUTROPHIL (0) 78 %; TOTAL NUCLEATED CELLS 100
[2017-01-15 03:44] LABS: BASOPHILS 0.2 %; BASOPHILS ABSOLUTE 0.03 10/3/uL (0.0-0.16); EOSINOPHILS 0.3 %; EOSINOPHILS ABSOLUTE 0.04 10/3/uL (0.0-0.53); HEMATOCRIT 28.3 % (36.0-48.0); HEMOGLOBIN 8.6 g/dL (12.0-16.0); IMMATURE GRANULOCYTES 2.5 %; IMMATURE GRANULOCYTES ABSOLUTE 0.36 10/3/uL (0.0-0.11); LYMPHOCYTES 8.7 %; LYMPHOCYTES ABSOLUTE 1.23 10/3/uL (0.67-4.30); MEAN CORPUS HGB CONC 30.4 g/dL (32.0-36.0); MEAN CORPUSCULAR HEMOGLOB 29.6 pg (26.0-34.0); MEAN CORPUSCULAR VOLUME 97.3 fL (80-100); MONOCYTES 6.4 %; MONOCYTES ABSOLUTE 0.91 10/3/uL (0.21-1.20); NEUTROPHILS 81.9 %; NUCLEATED RED BLOOD CELLS 3.3 /100WBC (0-0); PLATELET COUNT 17 10/3/uL (150-400); RBC DISTRIBUTION WIDTH 19.1 % (12.0-16.0); RED CELL COUNT 2.91 10/6/uL (4.0-5.6); WHITE BLOOD CELLS 14.2 10/3/uL (4.5-10.5)
[2017-01-15 03:46] LABS: MANUAL DIFF NO %
[2017-01-15 03:47] LABS: PARTIAL THROMBO TIME 61.8 SEC (22.5-37.2)
[2017-01-15 03:57] LABS: A/G RATIO 1.2 (0.7-1.9); ALKALINE PHOSPHATASE 169 U/L (45-117); BUN (BLOOD UREA NITROGEN) 38 MG/DL (6-23); CALCIUM, SERUM 8.1 MG/DL (8.5-10.4); CHLORIDE, SERUM 98 MMOL/L (96-112); CO2 (CARBON DIOXIDE) 33 MMOL/L (24-34); CREATININE 0.84 MG/DL (0.55-1.02); GFR AFRICAN AMERICAN 78 ML/MIN (>=60); GFR NON AFRICAN AMERICAN 68 ML/MIN (>=60); GLOBULIN 2.6 G/DL (2.5-4.1); GLUCOSE, SERUM 106 MG/DL (60-99); POTASSIUM, SERUM 3.8 MMOL/L (3.5-5.3); SGOT(AST) 35 U/L (5-40); SGPT(ALT) 26 U/L (5-65); SODIUM, SERUM 139 MMOL/L (135-148); TOTAL BILIRUBIN 1.6 MG/DL (0-1.2); TOTAL PROTEIN 5.6 G/DL (6.0-8.5)
[2017-01-15 04:26] LABS: POLYCHROMASIA 2+ (5-10/OIF) (0-1/OIF)
[2017-01-15 04:28] LABS: ANISOCYTOSIS 1+ (5-10/OIF) (0-5/OIF); ELLIPTOCYTES 1+ (3-10/OIF) (0-2/OIF); SCHISTOCYTES OCC (0-2/OIF)
[2017-01-15 09:37] LABS: ASCORBIC ACID (UR NOT ORDER) 40 (NEG); BILIRUBIN, URINE NEGATIVE (NEG); KETONE, URINE NEGATIVE (NEG); LEUKOCYTE ESTERASE(NOT OR LARGE (NEG); WBC (NOT ORDERED) (RFLEX) > 182 (0-5)
[2017-01-15 16:05] LABS: BASOPHILS 0.1 %; BASOPHILS ABSOLUTE 0.02 10/3/uL (0.0-0.16); EOSINOPHILS 0.2 %; EOSINOPHILS ABSOLUTE 0.03 10/3/uL (0.0-0.53); HEMATOCRIT 28.8 % (36.0-48.0); HEMOGLOBIN 8.9 g/dL (12.0-16.0); IMMATURE GRANULOCYTES 1.6 %; IMMATURE GRANULOCYTES ABSOLUTE 0.23 10/3/uL (0.0-0.11); LYMPHOCYTES 8.4 %; LYMPHOCYTES ABSOLUTE 1.18 10/3/uL (0.67-4.30); MEAN CORPUS HGB CONC 30.9 g/dL (32.0-36.0); MEAN CORPUSCULAR HEMOGLOB 30.5 pg (26.0-34.0); MEAN CORPUSCULAR VOLUME 98.6 fL (80-100); MONOCYTES ABSOLUTE 0.99 10/3/uL (0.21-1.20); NEUTROPHILS 82.7 %; NEUTROPHILS ABSOLUTE 11.64 10/3/uL (2.02-8.40); NUCLEATED RED BLOOD CELLS 2.3 /100WBC (0-0); RBC DISTRIBUTION WIDTH 19.4 % (12.0-16.0); RED CELL COUNT 2.92 10/6/uL (4.0-5.6); WHITE BLOOD CELLS 14.1 10/3/uL (4.5-10.5)
[2017-01-15 16:06] LABS: PLATELET COUNT 21 10/3/uL (150-400)
[2017-01-16 04:03] LABS: PARTIAL THROMBO TIME 31.3 SEC (22.5-37.2)
[2017-01-16 04:10] LABS: BASOPHILS 0.1 %; BASOPHILS ABSOLUTE 0.01 10/3/uL (0.0-0.16); EOSINOPHILS 0.3 %; EOSINOPHILS ABSOLUTE 0.04 10/3/uL (0.0-0.53); HEMATOCRIT 27.2 % (36.0-48.0); HEMOGLOBIN 8.3 g/dL (12.0-16.0); IMMATURE GRANULOCYTES 1.7 %; MEAN CORPUS HGB CONC 30.5 g/dL (32.0-36.0); MEAN CORPUSCULAR HEMOGLOB 30.5 pg (26.0-34.0); MONOCYTES 7.1 %; MONOCYTES ABSOLUTE 0.83 10/3/uL (0.21-1.20); NEUTROPHILS 78.8 %; NEUTROPHILS ABSOLUTE 9.14 10/3/uL (2.02-8.40); NUCLEATED RED BLOOD CELLS 1.4 /100WBC (0-0); RBC DISTRIBUTION WIDTH 19.8 % (12.0-16.0); RED CELL COUNT 2.72 10/6/uL (4.0-5.6); WHITE BLOOD CELLS 11.6 10/3/uL (4.5-10.5)
[2017-01-16 04:11] LABS: MANUAL DIFF NO %; PLATELET COUNT 28 10/3/uL (150-400)
[2017-01-16 04:17] LABS: BUN (BLOOD UREA NITROGEN) 38 MG/DL (6-23); CALCIUM, SERUM 8.2 MG/DL (8.5-10.4); CHLORIDE, SERUM 98 MMOL/L (96-112); CO2 (CARBON DIOXIDE) 36 MMOL/L (24-34); CREATININE 0.86 MG/DL (0.55-1.02); GFR AFRICAN AMERICAN 76 ML/MIN (>=60); GFR NON AFRICAN AMERICAN 66 ML/MIN (>=60); GLUCOSE, SERUM 132 MG/DL (60-99); POTASSIUM, SERUM 3.7 MMOL/L (3.5-5.3); SODIUM, SERUM 140 MMOL/L (135-148)
[2017-01-16 04:24] LABS: ANISOCYTOSIS 1+ (5-10/OIF) (0-5/OIF); MACROCYTES 1+ (5-10/OIF) (0-5/OIF); POLYCHROMASIA 1+ (2-5/OIF) (0-1/OIF); TEARDROP SHAPED RBCS FEW (3-10/OIF)
[2017-01-17 02:00] LABS: BASOPHILS 0.1 %; BASOPHILS ABSOLUTE 0.01 10/3/uL (0.0-0.16); EOSINOPHILS 0.6 %; EOSINOPHILS ABSOLUTE 0.08 10/3/uL (0.0-0.53); HEMATOCRIT 28.5 % (36.0-48.0); HEMOGLOBIN 8.7 g/dL (12.0-16.0); IMMATURE GRANULOCYTES 1.5 %; IMMATURE GRANULOCYTES ABSOLUTE 0.19 10/3/uL (0.0-0.11); LYMPHOCYTES 11.1 %; LYMPHOCYTES ABSOLUTE 1.43 10/3/uL (0.67-4.30); MEAN CORPUS HGB CONC 30.5 g/dL (32.0-36.0); MEAN CORPUSCULAR VOLUME 101.4 fL (80-100); MEAN PLATELET VOLUME 12.9 fL (9.2-13.0); MONOCYTES 6.9 %; MONOCYTES ABSOLUTE 0.89 10/3/uL (0.21-1.20); NEUTROPHILS 79.8 %; RBC DISTRIBUTION WIDTH 20.1 % (12.0-16.0); RED CELL COUNT 2.81 10/6/uL (4.0-5.6); WHITE BLOOD CELLS 12.9 10/3/uL (4.5-10.5)
[2017-01-17 02:02] LABS: MANUAL DIFF NO %; PLATELET COUNT 35 10/3/uL (150-400)
[2017-01-17 02:09] LABS: PARTIAL THROMBO TIME 54.5 SEC (22.5-37.2)
[2017-01-17 02:16] LABS: BUN (BLOOD UREA NITROGEN) 39 MG/DL (6-23); CHLORIDE, SERUM 99 MMOL/L (96-112); CO2 (CARBON DIOXIDE) 34 MMOL/L (24-34); CREATININE 0.77 MG/DL (0.55-1.02); GFR AFRICAN AMERICAN 87 ML/MIN (>=60); GFR NON AFRICAN AMERICAN 75 ML/MIN (>=60); GLUCOSE, SERUM 126 MG/DL (60-99); POTASSIUM, SERUM 4.1 MMOL/L (3.5-5.3); SODIUM, SERUM 143 MMOL/L (135-148)
[2017-01-17 02:23] LABS: ANISOCYTOSIS 1+ (5-10/OIF) (0-5/OIF); MACROCYTES 1+ (5-10/OIF) (0-5/OIF)
[2017-01-17 02:24] LABS: POLYCHROMASIA 1+ (2-5/OIF) (0-1/OIF); TARGET CELLS FEW (3-10/OIF) (0-1/OIF); TEARDROP SHAPED RBCS FEW (3-10/OIF)
[2017-01-17 07:33] LABS: UFH LOW DOSE 0.1 IU/ML 96 %RELEASE; UFH LOW DOSE 0.5 IU/ML 88 %RELEASE; UFH SRA RESULT POSITIVE (NEGATIVE)
[2017-01-17 07:34] LABS: UFH HIGH DOSE 100 IU/ML 0 %RELEASE
[2017-01-18 04:19] LABS: BASOPHILS 0.1 %; BASOPHILS ABSOLUTE 0.01 10/3/uL (0.0-0.16); EOSINOPHILS 0.2 %; EOSINOPHILS ABSOLUTE 0.03 10/3/uL (0.0-0.53); HEMATOCRIT 28.7 % (36.0-48.0); HEMOGLOBIN 8.7 g/dL (12.0-16.0); IMMATURE GRANULOCYTES 0.7 %; IMMATURE GRANULOCYTES ABSOLUTE 0.12 10/3/uL (0.0-0.11); LYMPHOCYTES 6.5 %; LYMPHOCYTES ABSOLUTE 1.11 10/3/uL (0.67-4.30); MEAN CORPUS HGB CONC 30.3 g/dL (32.0-36.0); MEAN CORPUSCULAR HEMOGLOB 29.7 pg (26.0-34.0); MEAN PLATELET VOLUME 10.9 fL (9.2-13.0); MONOCYTES 4.8 %; MONOCYTES ABSOLUTE 0.82 10/3/uL (0.21-1.20); NEUTROPHILS 87.7 %; NEUTROPHILS ABSOLUTE 15.05 10/3/uL (2.02-8.40); RBC DISTRIBUTION WIDTH 19.8 % (12.0-16.0); RED CELL COUNT 2.93 10/6/uL (4.0-5.6); WHITE BLOOD CELLS 17.1 10/3/uL (4.5-10.5)
[2017-01-18 04:26] LABS: CALCIUM, SERUM 8.5 MG/DL (8.5-10.4); CHLORIDE, SERUM 98 MMOL/L (96-112); CO2 (CARBON DIOXIDE) 33 MMOL/L (24-34); CREATININE 0.78 MG/DL (0.55-1.02); GFR AFRICAN AMERICAN 86 ML/MIN (>=60); GFR NON AFRICAN AMERICAN 74 ML/MIN (>=60); GLUCOSE, SERUM 134 MG/DL (60-99); POTASSIUM, SERUM 3.6 MMOL/L (3.5-5.3); SODIUM, SERUM 140 MMOL/L (135-148)
[2017-01-18 04:26] LABS: MANUAL DIFF NO %; PLATELET COUNT 65 10/3/uL (150-400)
[2017-01-18 04:28] LABS: BUN (BLOOD UREA NITROGEN) 31 MG/DL (6-23)
[2017-01-18 04:29] LABS: PARTIAL THROMBO TIME 59.2 SEC (22.5-37.2)
[2017-01-18 04:49] LABS: ANISOCYTOSIS 1+ (5-10/OIF) (0-5/OIF); PLATELET ESTIMATE DEC (ADEQUATE)
[2017-01-18 04:50] LABS: HYPOCHROMIA 1+ (3-10/OIF) (0-2/OIF); MACROCYTES 1+ (5-10/OIF) (0-5/OIF); POLYCHROMASIA 1+ (2-5/OIF) (0-1/OIF)
[2017-01-18 13:15] LABS: HEMATOCRIT 28.9 % (36.0-48.0); HEMOGLOBIN 8.6 g/dL (12.0-16.0); MEAN CORPUS HGB CONC 29.8 g/dL (32.0-36.0); MEAN CORPUSCULAR HEMOGLOB 29.3 pg (26.0-34.0); MEAN CORPUSCULAR VOLUME 98.3 fL (80-100); MEAN PLATELET VOLUME 11.6 fL (9.2-13.0); PLATELET COUNT 83 10/3/uL (150-400); RBC DISTRIBUTION WIDTH 19.7 % (12.0-16.0); RED CELL COUNT 2.94 10/6/uL (4.0-5.6)
[2017-01-18 13:16] LABS: MANUAL DIFF YES %
[2017-01-18 13:37] LABS: ANISOCYTOSIS 1+ (5-10/OIF) (0-5/OIF); BAND NEUTROPHILS 1 %; EOSINOPHILS 1 %; EOSINOPHILS ABSOLUTE (CALC) 0.14 10/3/uL (0.0-0.53); IMMATURE GRANS ABSOLUTE (CALC) 0.14 10/3/uL (0.0-0.11); LYMPHOCYTES 4 %; LYMPHOCYTES ABSOLUTE (CALC) 0.56 10/3/uL (0.67-4.30); METAMYELOCYTES 1 %; MONOCYTES 1 %; MONOCYTES ABSOLUTE (CALC) 0.14 10/3/uL (0.21-1.20); NEUTROPHILS ABSOLUTE (CALC) 13.02 10/3/uL (2.02-8.40); PLATELET ESTIMATE DEC (ADEQUATE); POLYCHROMASIA 1+ (2-5/OIF) (0-1/OIF); SEGMENTED NEUTROPHIL (0) 92 %; TOTAL NUCLEATED CELLS 100; TOXIC GRANULATION 1+
[2017-01-19 03:55] LABS: BASOPHILS 0 %; EOSINOPHILS 0.6 %; EOSINOPHILS ABSOLUTE 0.08 10/3/uL (0.0-0.53); HEMATOCRIT 28.3 % (36.0-48.0); HEMOGLOBIN 8.5 g/dL (12.0-16.0); IMMATURE GRANULOCYTES 0.6 %; IMMATURE GRANULOCYTES ABSOLUTE 0.08 10/3/uL (0.0-0.11); LYMPHOCYTES 9.4 %; LYMPHOCYTES ABSOLUTE 1.35 10/3/uL (0.67-4.30); MANUAL DIFF NO %; MEAN CORPUSCULAR HEMOGLOB 29.2 pg (26.0-34.0); MEAN CORPUSCULAR VOLUME 97.3 fL (80-100); MEAN PLATELET VOLUME 10.4 fL (9.2-13.0); MONOCYTES 5.7 %; MONOCYTES ABSOLUTE 0.82 10/3/uL (0.21-1.20); NEUTROPHILS 83.7 %; PLATELET COUNT 88 10/3/uL (150-400); RBC DISTRIBUTION WIDTH 19.3 % (12.0-16.0); RED CELL COUNT 2.91 10/6/uL (4.0-5.6); WHITE BLOOD CELLS 14.4 10/3/uL (4.5-10.5)
[2017-01-19 03:57] LABS: PARTIAL THROMBO TIME 54.6 SEC (22.5-37.2)
[2017-01-19 03:59] LABS: BUN (BLOOD UREA NITROGEN) 32 MG/DL (6-23); CALCIUM, SERUM 8.4 MG/DL (8.5-10.4); CHLORIDE, SERUM 97 MMOL/L (96-112); CO2 (CARBON DIOXIDE) 33 MMOL/L (24-34); CREATININE 0.75 MG/DL (0.55-1.02); GFR AFRICAN AMERICAN 90 ML/MIN (>=60); GFR NON AFRICAN AMERICAN 77 ML/MIN (>=60); GLUCOSE, SERUM 119 MG/DL (60-99); POTASSIUM, SERUM 3.4 MMOL/L (3.5-5.3); SODIUM, SERUM 139 MMOL/L (135-148)
[2017-01-20 04:20] LABS: INTERNATIONAL NORMAL RATI 1.9 UNITS (-)
[2017-01-20 04:21] LABS: CALCIUM, SERUM 8.5 MG/DL (8.5-10.4); CHLORIDE, SERUM 99 MMOL/L (96-112); CO2 (CARBON DIOXIDE) 33 MMOL/L (24-34); CREATININE 0.76 MG/DL (0.55-1.02); GFR AFRICAN AMERICAN 88 ML/MIN (>=60); GFR NON AFRICAN AMERICAN 76 ML/MIN (>=60); PARTIAL THROMBO TIME 51.2 SEC (22.5-37.2); POTASSIUM, SERUM 3.7 MMOL/L (3.5-5.3); SODIUM, SERUM 140 MMOL/L (135-148)
[2017-01-20 04:22] LABS: BUN (BLOOD UREA NITROGEN) 39 MG/DL (6-23); GLUCOSE, SERUM 90 MG/DL (60-99)
[2017-01-20 04:25] LABS: PROTIME (NOT ORD) 21.4 SEC (12.0-14.5)
[2017-01-20 04:47] LABS: BASOPHILS 0.1 %; BASOPHILS ABSOLUTE 0.01 10/3/uL (0.0-0.16); EOSINOPHILS 0.9 %; EOSINOPHILS ABSOLUTE 0.11 10/3/uL (0.0-0.53); HEMATOCRIT 29.7 % (36.0-48.0); HEMOGLOBIN 8.9 g/dL (12.0-16.0); IMMATURE GRANULOCYTES 0.3 %; IMMATURE GRANULOCYTES ABSOLUTE 0.04 10/3/uL (0.0-0.11); LYMPHOCYTES 12.4 %; LYMPHOCYTES ABSOLUTE 1.52 10/3/uL (0.67-4.30); MANUAL DIFF NO %; MEAN CORPUSCULAR HEMOGLOB 29.8 pg (26.0-34.0); MEAN CORPUSCULAR VOLUME 99.3 fL (80-100); MEAN PLATELET VOLUME 10.5 fL (9.2-13.0); MONOCYTES 6.5 %; MONOCYTES ABSOLUTE 0.79 10/3/uL (0.21-1.20); NEUTROPHILS 79.8 %; NEUTROPHILS ABSOLUTE 9.75 10/3/uL (2.02-8.40); PLATELET COUNT 118 10/3/uL (150-400); RBC DISTRIBUTION WIDTH 18.7 % (12.0-16.0); RED CELL COUNT 2.99 10/6/uL (4.0-5.6); WHITE BLOOD CELLS 12.2 10/3/uL (4.5-10.5)
[2017-01-21 08:03] LABS: BASOPHILS 0.1 %; BASOPHILS ABSOLUTE 0.01 10/3/uL (0.0-0.16); EOSINOPHILS 0.9 %; EOSINOPHILS ABSOLUTE 0.09 10/3/uL (0.0-0.53); HEMATOCRIT 28.3 % (36.0-48.0); HEMOGLOBIN 8.9 g/dL (12.0-16.0); IMMATURE GRANULOCYTES 0.1 %; IMMATURE GRANULOCYTES ABSOLUTE 0.01 10/3/uL (0.0-0.11); LYMPHOCYTES 11.9 %; LYMPHOCYTES ABSOLUTE 1.23 10/3/uL (0.67-4.30); MANUAL DIFF NO %; MEAN CORPUS HGB CONC 31.4 g/dL (32.0-36.0); MEAN CORPUSCULAR HEMOGLOB 30.3 pg (26.0-34.0); MEAN CORPUSCULAR VOLUME 96.3 fL (80-100); MONOCYTES 5.1 %; MONOCYTES ABSOLUTE 0.53 10/3/uL (0.21-1.20); NEUTROPHILS 81.9 %; NEUTROPHILS ABSOLUTE 8.45 10/3/uL (2.02-8.40); PLATELET COUNT 135 10/3/uL (150-400); RBC DISTRIBUTION WIDTH 18.5 % (12.0-16.0); RED CELL COUNT 2.94 10/6/uL (4.0-5.6); WHITE BLOOD CELLS 10.3 10/3/uL (4.5-10.5)
[2017-01-21 08:17] LABS: BUN (BLOOD UREA NITROGEN) 40 MG/DL (6-23); CALCIUM, SERUM 8.6 MG/DL (8.5-10.4); CHLORIDE, SERUM 98 MMOL/L (96-112); CO2 (CARBON DIOXIDE) 32 MMOL/L (24-34); CREATININE 0.78 MG/DL (0.55-1.02); GFR AFRICAN AMERICAN 86 ML/MIN (>=60); GFR NON AFRICAN AMERICAN 74 ML/MIN (>=60); GLUCOSE, SERUM 95 MG/DL (60-99); POTASSIUM, SERUM 3.9 MMOL/L (3.5-5.3); SODIUM, SERUM 137 MMOL/L (135-148)
[2017-01-21 08:38] LABS: PARTIAL THROMBO TIME 62.3 SEC (22.5-37.2); PROTIME (NOT ORD) 22.8 SEC (12.0-14.5)
[2017-01-22 05:17] LABS: INTERNATIONAL NORMAL RATI 2.1 UNITS (-)
[2017-01-22 05:18] LABS: PARTIAL THROMBO TIME 56.4 SEC (22.5-37.2)
[2017-01-22 05:20] LABS: BUN (BLOOD UREA NITROGEN) 40 MG/DL (6-23); CALCIUM, SERUM 8.6 MG/DL (8.5-10.4); CHLORIDE, SERUM 98 MMOL/L (96-112); CO2 (CARBON DIOXIDE) 29 MMOL/L (24-34); GFR AFRICAN AMERICAN 83 ML/MIN (>=60); GFR NON AFRICAN AMERICAN 72 ML/MIN (>=60); POTASSIUM, SERUM 3.9 MMOL/L (3.5-5.3); SODIUM, SERUM 137 MMOL/L (135-148)
[2017-01-22 05:21] LABS: GLUCOSE, SERUM 121 MG/DL (60-99)
[2017-01-22 09:41] LABS: BASOPHILS 0.1 %; BASOPHILS ABSOLUTE 0.01 10/3/uL (0.0-0.16); EOSINOPHILS 0.4 %; EOSINOPHILS ABSOLUTE 0.04 10/3/uL (0.0-0.53); HEMATOCRIT 29.7 % (36.0-48.0); HEMOGLOBIN 9.1 g/dL (12.0-16.0); IMMATURE GRANULOCYTES 0.3 %; IMMATURE GRANULOCYTES ABSOLUTE 0.03 10/3/uL (0.0-0.11); LYMPHOCYTES 6.3 %; LYMPHOCYTES ABSOLUTE 0.72 10/3/uL (0.67-4.30); MEAN CORPUS HGB CONC 30.6 g/dL (32.0-36.0); MEAN CORPUSCULAR HEMOGLOB 30.3 pg (26.0-34.0); MEAN PLATELET VOLUME 10.6 fL (9.2-13.0); MONOCYTES 6.4 %; MONOCYTES ABSOLUTE 0.73 10/3/uL (0.21-1.20); NEUTROPHILS 86.5 %; NEUTROPHILS ABSOLUTE 9.85 10/3/uL (2.02-8.40); PLATELET COUNT 163 10/3/uL (150-400); WHITE BLOOD CELLS 11.4 10/3/uL (4.5-10.5)
[2017-01-22 09:42] LABS: MANUAL DIFF NO %
[2017-01-23 05:44] LABS: INTERNATIONAL NORMAL RATI 2.1 UNITS (-); PARTIAL THROMBO TIME 48.5 SEC (22.5-37.2); PROTIME (NOT ORD) 23.4 SEC (12.0-14.5)
[2017-01-23 07:32] LABS: BASOPHILS 0.2 %; BASOPHILS ABSOLUTE 0.02 10/3/uL (0.0-0.16); EOSINOPHILS 0.7 %; EOSINOPHILS ABSOLUTE 0.08 10/3/uL (0.0-0.53); HEMATOCRIT 30.1 % (36.0-48.0); IMMATURE GRANULOCYTES 0.2 %; IMMATURE GRANULOCYTES ABSOLUTE 0.02 10/3/uL (0.0-0.11); LYMPHOCYTES 11.6 %; LYMPHOCYTES ABSOLUTE 1.26 10/3/uL (0.67-4.30); MEAN CORPUS HGB CONC 29.9 g/dL (32.0-36.0); MEAN CORPUSCULAR HEMOGLOB 29.4 pg (26.0-34.0); MEAN CORPUSCULAR VOLUME 98.4 fL (80-100); MEAN PLATELET VOLUME 9.9 fL (9.2-13.0); MONOCYTES 8.1 %; MONOCYTES ABSOLUTE 0.88 10/3/uL (0.21-1.20); NEUTROPHILS 79.2 %; NEUTROPHILS ABSOLUTE 8.58 10/3/uL (2.02-8.40); PLATELET COUNT 152 10/3/uL (150-400); RBC DISTRIBUTION WIDTH 17.6 % (12.0-16.0); RED CELL COUNT 3.06 10/6/uL (4.0-5.6); WHITE BLOOD CELLS 10.8 10/3/uL (4.5-10.5)
[2017-01-23 07:35] LABS: MANUAL DIFF NO %
[2017-01-24 03:59] LABS: BASOPHILS 0.2 %; BASOPHILS ABSOLUTE 0.02 10/3/uL (0.0-0.16); EOSINOPHILS 0.9 %; EOSINOPHILS ABSOLUTE 0.09 10/3/uL (0.0-0.53); HEMATOCRIT 29.3 % (36.0-48.0); IMMATURE GRANULOCYTES 0.2 %; IMMATURE GRANULOCYTES ABSOLUTE 0.02 10/3/uL (0.0-0.11); LYMPHOCYTES 12.6 %; LYMPHOCYTES ABSOLUTE 1.22 10/3/uL (0.67-4.30); MEAN CORPUS HGB CONC 30.7 g/dL (32.0-36.0); MEAN CORPUSCULAR HEMOGLOB 29.8 pg (26.0-34.0); MEAN PLATELET VOLUME 9.6 fL (9.2-13.0); MONOCYTES 7.7 %; MONOCYTES ABSOLUTE 0.75 10/3/uL (0.21-1.20); NEUTROPHILS 78.4 %; PLATELET COUNT 182 10/3/uL (150-400); RBC DISTRIBUTION WIDTH 17.4 % (12.0-16.0); RED CELL COUNT 3.02 10/6/uL (4.0-5.6); WHITE BLOOD CELLS 9.7 10/3/uL (4.5-10.5)
[2017-01-24 04:01] LABS: MANUAL DIFF NO %
[2017-01-24 04:06] LABS: INTERNATIONAL NORMAL RATI 2.2 UNITS (-); PROTIME (NOT ORD) 24.6 SEC (12.0-14.5)
[2017-01-24 17:25] LABS: ASCORBIC ACID (UR NOT ORDER) 40 (NEG); BILIRUBIN, URINE NEGATIVE (NEG); KETONE, URINE NEGATIVE (NEG); LEUKOCYTE ESTERASE(NOT OR NEG (NEG); WBC (NOT ORDERED) (RFLEX) 2 (0-5)
[2017-01-25 04:37] LABS: BASOPHILS 0.2 %; BASOPHILS ABSOLUTE 0.02 10/3/uL (0.0-0.16); EOSINOPHILS 1.2 %; HEMATOCRIT 29.8 % (36.0-48.0); IMMATURE GRANULOCYTES 0.2 %; IMMATURE GRANULOCYTES ABSOLUTE 0.02 10/3/uL (0.0-0.11); LYMPHOCYTES 13.1 %; LYMPHOCYTES ABSOLUTE 1.12 10/3/uL (0.67-4.30); MEAN CORPUS HGB CONC 30.2 g/dL (32.0-36.0); MEAN CORPUSCULAR HEMOGLOB 29.5 pg (26.0-34.0); MEAN CORPUSCULAR VOLUME 97.7 fL (80-100); MEAN PLATELET VOLUME 9.6 fL (9.2-13.0); MONOCYTES 7.7 %; MONOCYTES ABSOLUTE 0.66 10/3/uL (0.21-1.20); NEUTROPHILS 77.6 %; NEUTROPHILS ABSOLUTE 6.63 10/3/uL (2.02-8.40); PLATELET COUNT 203 10/3/uL (150-400); RBC DISTRIBUTION WIDTH 17.5 % (12.0-16.0); RED CELL COUNT 3.05 10/6/uL (4.0-5.6); WHITE BLOOD CELLS 8.6 10/3/uL (4.5-10.5)
[2017-01-25 04:42] LABS: INTERNATIONAL NORMAL RATI 1.5 UNITS (-); PARTIAL THROMBO TIME 34.3 SEC (22.5-37.2)
[2017-01-25 04:50] LABS: MANUAL DIFF NO %; PROTIME (NOT ORD) 18.3 SEC (12.0-14.5)
[2017-01-25 05:01] LABS: CALCIUM, SERUM 8.9 MG/DL (8.5-10.4); CHLORIDE, SERUM 97 MMOL/L (96-112); CO2 (CARBON DIOXIDE) 33 MMOL/L (24-34); CREATININE 0.68 MG/DL (0.55-1.02); GFR AFRICAN AMERICAN 98 ML/MIN (>=60); GFR NON AFRICAN AMERICAN 85 ML/MIN (>=60); SODIUM, SERUM 141 MMOL/L (135-148)
[2017-01-25 05:02] LABS: POTASSIUM, SERUM 4.8 MMOL/L (3.5-5.3)
[2017-01-25 05:03] LABS: BUN (BLOOD UREA NITROGEN) 21 MG/DL (6-23); GLUCOSE, SERUM 82 MG/DL (60-99)
[2017-01-26 03:58] LABS: BASOPHILS 0.1 %; BASOPHILS ABSOLUTE 0.01 10/3/uL (0.0-0.16); EOSINOPHILS ABSOLUTE 0.15 10/3/uL (0.0-0.53); HEMATOCRIT 29.3 % (36.0-48.0); IMMATURE GRANULOCYTES 0.4 %; IMMATURE GRANULOCYTES ABSOLUTE 0.03 10/3/uL (0.0-0.11); LYMPHOCYTES 12.5 %; LYMPHOCYTES ABSOLUTE 0.95 10/3/uL (0.67-4.30); MANUAL DIFF NO %; MEAN CORPUS HGB CONC 30.7 g/dL (32.0-36.0); MEAN CORPUSCULAR HEMOGLOB 29.6 pg (26.0-34.0); MEAN CORPUSCULAR VOLUME 96.4 fL (80-100); MEAN PLATELET VOLUME 9.2 fL (9.2-13.0); MONOCYTES 6.7 %; MONOCYTES ABSOLUTE 0.51 10/3/uL (0.21-1.20); NEUTROPHILS 78.3 %; NEUTROPHILS ABSOLUTE 5.92 10/3/uL (2.02-8.40); PLATELET COUNT 198 10/3/uL (150-400); RBC DISTRIBUTION WIDTH 17.3 % (12.0-16.0); RED CELL COUNT 3.04 10/6/uL (4.0-5.6); WHITE BLOOD CELLS 7.6 10/3/uL (4.5-10.5)
[2017-01-26 04:07] LABS: PROTIME (NOT ORD) 30.8 SEC (12.0-14.5)
[2017-01-26 04:10] LABS: BUN (BLOOD UREA NITROGEN) 18 MG/DL (6-23); CALCIUM, SERUM 8.5 MG/DL (8.5-10.4); CHLORIDE, SERUM 97 MMOL/L (96-112); CO2 (CARBON DIOXIDE) 31 MMOL/L (24-34); CREATININE 0.59 MG/DL (0.55-1.02); GFR AFRICAN AMERICAN 103 ML/MIN (>=60); GFR NON AFRICAN AMERICAN 89 ML/MIN (>=60); GLUCOSE, SERUM 93 MG/DL (60-99); SODIUM, SERUM 142 MMOL/L (135-148)
[2017-01-26 04:21] LABS: POTASSIUM, SERUM 3.6 MMOL/L (3.5-5.3)
[2017-01-26 05:13] LABS: PARTIAL THROMBO TIME 74.4 SEC (22.5-37.2)
[2017-01-26 13:39] LABS: PHOSPHORUS, SERUM 4.1 MG/DL (2.5-4.5); PREALBUMIN 12.7 MG/DL (17.0-43.0); SGPT(ALT) 18 U/L (5-65)
[2017-01-26 16:11] LABS: A/G RATIO 0.9 (0.7-1.9); ALBUMIN 2.8 G/DL (3.5-5.0); GLOBULIN 3.1 G/DL (2.5-4.1); SGOT(AST) 27 U/L (5-40); TOTAL PROTEIN 5.9 G/DL (6.0-8.5)
[2017-01-26 16:14] LABS: ALKALINE PHOSPHATASE 134 U/L (45-117); TOTAL BILIRUBIN 0.6 MG/DL (0-1.2)
[2017-01-27 07:17] LABS: BASOPHILS 0.1 %; BASOPHILS ABSOLUTE 0.01 10/3/uL (0.0-0.16); EOSINOPHILS 1.9 %; EOSINOPHILS ABSOLUTE 0.16 10/3/uL (0.0-0.53); HEMOGLOBIN 9.1 g/dL (12.0-16.0); IMMATURE GRANULOCYTES 0.2 %; IMMATURE GRANULOCYTES ABSOLUTE 0.02 10/3/uL (0.0-0.11); LYMPHOCYTES ABSOLUTE 1.41 10/3/uL (0.67-4.30); MEAN CORPUS HGB CONC 31.4 g/dL (32.0-36.0); MEAN CORPUSCULAR HEMOGLOB 30.3 pg (26.0-34.0); MEAN CORPUSCULAR VOLUME 96.7 fL (80-100); MEAN PLATELET VOLUME 9.3 fL (9.2-13.0); MONOCYTES 7.4 %; MONOCYTES ABSOLUTE 0.61 10/3/uL (0.21-1.20); NEUTROPHILS 73.4 %; NEUTROPHILS ABSOLUTE 6.08 10/3/uL (2.02-8.40); PLATELET COUNT 203 10/3/uL (150-400); RBC DISTRIBUTION WIDTH 17.3 % (12.0-16.0); WHITE BLOOD CELLS 8.3 10/3/uL (4.5-10.5)
[2017-01-27 07:22] LABS: INTERNATIONAL NORMAL RATI 2.5 UNITS (-); PROTIME (NOT ORD) 26.8 SEC (12.0-14.5)
[2017-01-27 07:23] LABS: PARTIAL THROMBO TIME 64.9 SEC (22.5-37.2)
[2017-01-27 07:25] LABS: MANUAL DIFF NO %
[2017-01-27 07:32] LABS: BUN (BLOOD UREA NITROGEN) 19 MG/DL (6-23); CALCIUM, SERUM 8.5 MG/DL (8.5-10.4); CHLORIDE, SERUM 100 MMOL/L (96-112); CO2 (CARBON DIOXIDE) 32 MMOL/L (24-34); CREATININE 0.65 MG/DL (0.55-1.02); GFR AFRICAN AMERICAN 100 ML/MIN (>=60); GFR NON AFRICAN AMERICAN 86 ML/MIN (>=60); GLUCOSE, SERUM 116 MG/DL (60-99); POTASSIUM, SERUM 3.7 MMOL/L (3.5-5.3); SODIUM, SERUM 141 MMOL/L (135-148)
[2017-01-28 07:58] LABS: BASOPHILS 0.1 %; BASOPHILS ABSOLUTE 0.01 10/3/uL (0.0-0.16); EOSINOPHILS ABSOLUTE 0.29 10/3/uL (0.0-0.53); HEMATOCRIT 29.7 % (36.0-48.0); HEMOGLOBIN 8.9 g/dL (12.0-16.0); IMMATURE GRANULOCYTES 0.2 %; IMMATURE GRANULOCYTES ABSOLUTE 0.02 10/3/uL (0.0-0.11); LYMPHOCYTES 8.2 %; MEAN CORPUSCULAR VOLUME 96.7 fL (80-100); MEAN PLATELET VOLUME 9.6 fL (9.2-13.0); MONOCYTES 5.3 %; MONOCYTES ABSOLUTE 0.52 10/3/uL (0.21-1.20); NEUTROPHILS 83.2 %; NEUTROPHILS ABSOLUTE 8.15 10/3/uL (2.02-8.40); PLATELET COUNT 235 10/3/uL (150-400); RED CELL COUNT 3.07 10/6/uL (4.0-5.6); WHITE BLOOD CELLS 9.8 10/3/uL (4.5-10.5)
[2017-01-28 07:59] LABS: MANUAL DIFF NO %
[2017-01-28 08:07] LABS: INTERNATIONAL NORMAL RATI 3.2 UNITS (-)
[2017-01-28 08:08] LABS: PARTIAL THROMBO TIME 79.9 SEC (22.5-37.2); PROTIME (NOT ORD) 32.8 SEC (12.0-14.5)
[2017-01-28 08:20] LABS: BUN (BLOOD UREA NITROGEN) 20 MG/DL (6-23); CALCIUM, SERUM 8.3 MG/DL (8.5-10.4); CHLORIDE, SERUM 97 MMOL/L (96-112); CO2 (CARBON DIOXIDE) 34 MMOL/L (24-34); CREATININE 0.75 MG/DL (0.55-1.02); GFR AFRICAN AMERICAN 90 ML/MIN (>=60); GFR NON AFRICAN AMERICAN 77 ML/MIN (>=60); GLUCOSE, SERUM 112 MG/DL (60-99); POTASSIUM, SERUM 3.1 MMOL/L (3.5-5.3); SODIUM, SERUM 141 MMOL/L (135-148)
[2017-01-29 08:34] LABS: BASOPHILS 0.1 %; BASOPHILS ABSOLUTE 0.01 10/3/uL (0.0-0.16); EOSINOPHILS ABSOLUTE 0.23 10/3/uL (0.0-0.53); HEMATOCRIT 30.4 % (36.0-48.0); HEMOGLOBIN 9.2 g/dL (12.0-16.0); IMMATURE GRANULOCYTES 0.3 %; IMMATURE GRANULOCYTES ABSOLUTE 0.02 10/3/uL (0.0-0.11); LYMPHOCYTES 14.7 %; LYMPHOCYTES ABSOLUTE 1.14 10/3/uL (0.67-4.30); MEAN CORPUS HGB CONC 30.3 g/dL (32.0-36.0); MEAN CORPUSCULAR HEMOGLOB 29.2 pg (26.0-34.0); MEAN CORPUSCULAR VOLUME 96.5 fL (80-100); MEAN PLATELET VOLUME 9.4 fL (9.2-13.0); MONOCYTES 7.9 %; MONOCYTES ABSOLUTE 0.61 10/3/uL (0.21-1.20); NEUTROPHILS ABSOLUTE 5.73 10/3/uL (2.02-8.40); PLATELET COUNT 220 10/3/uL (150-400); RBC DISTRIBUTION WIDTH 16.6 % (12.0-16.0); RED CELL COUNT 3.15 10/6/uL (4.0-5.6); WHITE BLOOD CELLS 7.7 10/3/uL (4.5-10.5)
[2017-01-29 08:35] LABS: MANUAL DIFF NO %
[2017-01-29 08:42] LABS: INTERNATIONAL NORMAL RATI 1.5 UNITS (-); PARTIAL THROMBO TIME 33.5 SEC (22.5-37.2); PROTIME (NOT ORD) 17.8 SEC (12.0-14.5)
[2017-01-29 08:49] LABS: BUN (BLOOD UREA NITROGEN) 20 MG/DL (6-23); CALCIUM, SERUM 8.5 MG/DL (8.5-10.4); CHLORIDE, SERUM 98 MMOL/L (96-112); CO2 (CARBON DIOXIDE) 34 MMOL/L (24-34); CREATININE 0.58 MG/DL (0.55-1.02); GFR AFRICAN AMERICAN 104 ML/MIN (>=60); GFR NON AFRICAN AMERICAN 90 ML/MIN (>=60); GLUCOSE, SERUM 83 MG/DL (60-99); POTASSIUM, SERUM 2.6 MMOL/L (3.5-5.3); SODIUM, SERUM 143 MMOL/L (135-148)
[2017-01-29 12:14] LABS: INTERNATIONAL NORMAL RATI 1.5 UNITS (-); PARTIAL THROMBO TIME 32.6 SEC (22.5-37.2); PROTIME (NOT ORD) 18.2 SEC (12.0-14.5)
[2017-01-30 04:22] LABS: BASOPHILS 0.2 %; BASOPHILS ABSOLUTE 0.01 10/3/uL (0.0-0.16); EOSINOPHILS ABSOLUTE 0.19 10/3/uL (0.0-0.53); HEMATOCRIT 30.7 % (36.0-48.0); HEMOGLOBIN 9.4 g/dL (12.0-16.0); IMMATURE GRANULOCYTES 0.3 %; IMMATURE GRANULOCYTES ABSOLUTE 0.02 10/3/uL (0.0-0.11); LYMPHOCYTES 15.7 %; LYMPHOCYTES ABSOLUTE 1.01 10/3/uL (0.67-4.30); MEAN CORPUS HGB CONC 30.6 g/dL (32.0-36.0); MEAN CORPUSCULAR HEMOGLOB 29.4 pg (26.0-34.0); MEAN CORPUSCULAR VOLUME 95.9 fL (80-100); MEAN PLATELET VOLUME 9.6 fL (9.2-13.0); MONOCYTES 7.8 %; NEUTROPHILS ABSOLUTE 4.71 10/3/uL (2.02-8.40); PLATELET COUNT 231 10/3/uL (150-400); RBC DISTRIBUTION WIDTH 16.1 % (12.0-16.0); WHITE BLOOD CELLS 6.4 10/3/uL (4.5-10.5)
[2017-01-30 04:23] LABS: MANUAL DIFF NO %
[2017-01-30 04:27] LABS: PARTIAL THROMBO TIME 50.7 SEC (22.5-37.2); PROTIME (NOT ORD) 22.6 SEC (12.0-14.5)
[2017-01-30 04:39] LABS: A/G RATIO 0.8 (0.7-1.9); ALBUMIN 2.6 G/DL (3.5-5.0); ALKALINE PHOSPHATASE 144 U/L (45-117); BUN (BLOOD UREA NITROGEN) 20 MG/DL (6-23); CALCIUM, SERUM 8.3 MG/DL (8.5-10.4); CHLORIDE, SERUM 97 MMOL/L (96-112); CO2 (CARBON DIOXIDE) 33 MMOL/L (24-34); CREATININE 0.67 MG/DL (0.55-1.02); GFR AFRICAN AMERICAN 99 ML/MIN (>=60); GFR NON AFRICAN AMERICAN 85 ML/MIN (>=60); GLOBULIN 3.3 G/DL (2.5-4.1); SGOT(AST) 22 U/L (5-40); SGPT(ALT) 15 U/L (5-65); SODIUM, SERUM 143 MMOL/L (135-148); TOTAL PROTEIN 5.9 G/DL (6.0-8.5)
[2017-01-30 04:41] LABS: GLUCOSE, SERUM 127 MG/DL (60-99)
[2017-01-31 05:33] LABS: BASOPHILS 0.3 %; BASOPHILS ABSOLUTE 0.02 10/3/uL (0.0-0.16); EOSINOPHILS 2.7 %; EOSINOPHILS ABSOLUTE 0.18 10/3/uL (0.0-0.53); HEMATOCRIT 32.9 % (36.0-48.0); HEMOGLOBIN 9.7 g/dL (12.0-16.0); IMMATURE GRANULOCYTES 0.1 %; IMMATURE GRANULOCYTES ABSOLUTE 0.01 10/3/uL (0.0-0.11); LYMPHOCYTES ABSOLUTE 1.55 10/3/uL (0.67-4.30); MANUAL DIFF NO %; MEAN CORPUS HGB CONC 29.5 g/dL (32.0-36.0); MEAN CORPUSCULAR HEMOGLOB 28.9 pg (26.0-34.0); MEAN CORPUSCULAR VOLUME 97.9 fL (80-100); MEAN PLATELET VOLUME 9.7 fL (9.2-13.0); MONOCYTES 8.3 %; MONOCYTES ABSOLUTE 0.56 10/3/uL (0.21-1.20); NEUTROPHILS 65.6 %; NEUTROPHILS ABSOLUTE 4.42 10/3/uL (2.02-8.40); PLATELET COUNT 266 10/3/uL (150-400); RBC DISTRIBUTION WIDTH 16.3 % (12.0-16.0); RED CELL COUNT 3.36 10/6/uL (4.0-5.6); WHITE BLOOD CELLS 6.7 10/3/uL (4.5-10.5)
[2017-01-31 05:35] LABS: INTERNATIONAL NORMAL RATI 1.9 UNITS (-)
[2017-01-31 05:36] LABS: PARTIAL THROMBO TIME 50.9 SEC (22.5-37.2)
[2017-01-31 06:02] LABS: BUN (BLOOD UREA NITROGEN) 20 MG/DL (6-23); CALCIUM, SERUM 8.4 MG/DL (8.5-10.4); CHLORIDE, SERUM 100 MMOL/L (96-112); CO2 (CARBON DIOXIDE) 34 MMOL/L (24-34); CREATININE 0.68 MG/DL (0.55-1.02); GFR AFRICAN AMERICAN 98 ML/MIN (>=60); GFR NON AFRICAN AMERICAN 85 ML/MIN (>=60); GLUCOSE, SERUM 116 MG/DL (60-99); POTASSIUM, SERUM 3.6 MMOL/L (3.5-5.3); SODIUM, SERUM 143 MMOL/L (135-148)
[2017-02-01 04:48] LABS: BASOPHILS 0.2 %; BASOPHILS ABSOLUTE 0.02 10/3/uL (0.0-0.16); EOSINOPHILS 3.6 %; HEMATOCRIT 33.1 % (36.0-48.0); HEMOGLOBIN 9.8 g/dL (12.0-16.0); IMMATURE GRANULOCYTES 0.2 %; IMMATURE GRANULOCYTES ABSOLUTE 0.02 10/3/uL (0.0-0.11); LYMPHOCYTES 18.1 %; LYMPHOCYTES ABSOLUTE 1.49 10/3/uL (0.67-4.30); MEAN CORPUS HGB CONC 29.6 g/dL (32.0-36.0); MEAN CORPUSCULAR VOLUME 97.9 fL (80-100); MEAN PLATELET VOLUME 9.8 fL (9.2-13.0); MONOCYTES ABSOLUTE 0.82 10/3/uL (0.21-1.20); NEUTROPHILS 67.9 %; NEUTROPHILS ABSOLUTE 5.58 10/3/uL (2.02-8.40); PLATELET COUNT 280 10/3/uL (150-400); RBC DISTRIBUTION WIDTH 16.5 % (12.0-16.0); RED CELL COUNT 3.38 10/6/uL (4.0-5.6); WHITE BLOOD CELLS 8.2 10/3/uL (4.5-10.5)
[2017-02-01 04:52] LABS: MANUAL DIFF NO %
[2017-02-01 04:57] LABS: INTERNATIONAL NORMAL RATI 2.5 UNITS (-)
[2017-02-01 04:58] LABS: PARTIAL THROMBO TIME 61.6 SEC (22.5-37.2)
[2017-02-01 04:59] LABS: BUN (BLOOD UREA NITROGEN) 21 MG/DL (6-23); CALCIUM, SERUM 8.1 MG/DL (8.5-10.4); CHLORIDE, SERUM 97 MMOL/L (96-112); CO2 (CARBON DIOXIDE) 36 MMOL/L (24-34); CREATININE 0.69 MG/DL (0.55-1.02); GFR AFRICAN AMERICAN 98 ML/MIN (>=60); GFR NON AFRICAN AMERICAN 85 ML/MIN (>=60); GLUCOSE, SERUM 121 MG/DL (60-99); POTASSIUM, SERUM 3.5 MMOL/L (3.5-5.3); SODIUM, SERUM 140 MMOL/L (135-148)
[2017-02-01 05:02] LABS: PROTIME (NOT ORD) 26.8 SEC (12.0-14.5)
[2017-02-01 10:58] LABS: WBC (NOT ORDERED) (RFLEX) 0 (0-5)
[2017-02-01 11:12] LABS: ASCORBIC ACID (UR NOT ORDER) NEG (NEG); BILIRUBIN, URINE NEGATIVE (NEG); KETONE, URINE NEGATIVE (NEG); LEUKOCYTE ESTERASE(NOT OR NEG (NEG)
[2017-02-01 13:38] LABS: INTERNATIONAL NORMAL RATI 1.5 UNITS (-)
[2017-02-01 13:41] LABS: PROTIME (NOT ORD) 18.2 SEC (12.0-14.5)
[2017-02-02 04:51] LABS: BASOPHILS 0.2 %; BASOPHILS ABSOLUTE 0.02 10/3/uL (0.0-0.16); EOSINOPHILS 1.9 %; EOSINOPHILS ABSOLUTE 0.16 10/3/uL (0.0-0.53); HEMATOCRIT 35.8 % (36.0-48.0); HEMOGLOBIN 10.7 g/dL (12.0-16.0); IMMATURE GRANULOCYTES 0.4 %; IMMATURE GRANULOCYTES ABSOLUTE 0.03 10/3/uL (0.0-0.11); LYMPHOCYTES 18.7 %; LYMPHOCYTES ABSOLUTE 1.58 10/3/uL (0.67-4.30); MEAN CORPUS HGB CONC 29.9 g/dL (32.0-36.0); MEAN CORPUSCULAR HEMOGLOB 28.5 pg (26.0-34.0); MEAN CORPUSCULAR VOLUME 95.5 fL (80-100); MEAN PLATELET VOLUME 10.1 fL (9.2-13.0); MONOCYTES ABSOLUTE 0.51 10/3/uL (0.21-1.20); NEUTROPHILS 72.8 %; NEUTROPHILS ABSOLUTE 6.13 10/3/uL (2.02-8.40); PLATELET COUNT 284 10/3/uL (150-400); RBC DISTRIBUTION WIDTH 16.6 % (12.0-16.0); RED CELL COUNT 3.75 10/6/uL (4.0-5.6); WHITE BLOOD CELLS 8.4 10/3/uL (4.5-10.5)
[2017-02-02 04:54] LABS: MANUAL DIFF NO %
[2017-02-02 04:59] LABS: BUN (BLOOD UREA NITROGEN) 22 MG/DL (6-23); CALCIUM, SERUM 8.7 MG/DL (8.5-10.4); CHLORIDE, SERUM 98 MMOL/L (96-112); CO2 (CARBON DIOXIDE) 34 MMOL/L (24-34); GFR AFRICAN AMERICAN 98 ML/MIN (>=60); GFR NON AFRICAN AMERICAN 84 ML/MIN (>=60); GLUCOSE, SERUM 131 MG/DL (60-99); POTASSIUM, SERUM 3.8 MMOL/L (3.5-5.3); SODIUM, SERUM 141 MMOL/L (135-148)
[2017-02-02 06:00] LABS: PARTIAL THROMBO TIME 68.8 SEC (22.5-37.2)
[2017-02-02 06:07] LABS: PROTIME (NOT ORD) 30.8 SEC (12.0-14.5)
[2017-02-02 13:24] LABS: INTERNATIONAL NORMAL RATI 1.6 UNITS (-)
[2017-02-02 13:25] LABS: PROTIME (NOT ORD) 18.9 SEC (12.0-14.5)
[2017-02-03 02:31] LABS: BASOPHILS 0.4 %; BASOPHILS ABSOLUTE 0.03 10/3/uL (0.0-0.16); EOSINOPHILS 2.8 %; EOSINOPHILS ABSOLUTE 0.22 10/3/uL (0.0-0.53); HEMATOCRIT 32.5 % (36.0-48.0); HEMOGLOBIN 9.6 g/dL (12.0-16.0); IMMATURE GRANULOCYTES 0.3 %; IMMATURE GRANULOCYTES ABSOLUTE 0.02 10/3/uL (0.0-0.11); LYMPHOCYTES 18.4 %; LYMPHOCYTES ABSOLUTE 1.46 10/3/uL (0.67-4.30); MEAN CORPUS HGB CONC 29.5 g/dL (32.0-36.0); MEAN CORPUSCULAR HEMOGLOB 28.2 pg (26.0-34.0); MEAN CORPUSCULAR VOLUME 95.3 fL (80-100); MONOCYTES 7.6 %; NEUTROPHILS 70.5 %; NEUTROPHILS ABSOLUTE 5.61 10/3/uL (2.02-8.40); PLATELET COUNT 285 10/3/uL (150-400); RBC DISTRIBUTION WIDTH 16.6 % (12.0-16.0); RED CELL COUNT 3.41 10/6/uL (4.0-5.6); WHITE BLOOD CELLS 7.9 10/3/uL (4.5-10.5)
[2017-02-03 02:33] LABS: MANUAL DIFF NO %
[2017-02-03 02:42] LABS: INTERNATIONAL NORMAL RATI 3.2 UNITS (-)
[2017-02-03 02:52] LABS: PROTIME (NOT ORD) 32.4 SEC (12.0-14.5)
[2017-02-04 06:03] LABS: BASOPHILS 0.2 %; BASOPHILS ABSOLUTE 0.02 10/3/uL (0.0-0.16); EOSINOPHILS 0.4 %; EOSINOPHILS ABSOLUTE 0.04 10/3/uL (0.0-0.53); HEMATOCRIT 32.2 % (36.0-48.0); HEMOGLOBIN 9.7 g/dL (12.0-16.0); IMMATURE GRANULOCYTES 0.1 %; IMMATURE GRANULOCYTES ABSOLUTE 0.01 10/3/uL (0.0-0.11); LYMPHOCYTES 11.4 %; LYMPHOCYTES ABSOLUTE 1.05 10/3/uL (0.67-4.30); MEAN CORPUS HGB CONC 30.1 g/dL (32.0-36.0); MEAN CORPUSCULAR VOLUME 93.1 fL (80-100); MEAN PLATELET VOLUME 10.2 fL (9.2-13.0); MONOCYTES 5.1 %; MONOCYTES ABSOLUTE 0.47 10/3/uL (0.21-1.20); NEUTROPHILS 82.8 %; NEUTROPHILS ABSOLUTE 7.61 10/3/uL (2.02-8.40); PLATELET COUNT 285 10/3/uL (150-400); RBC DISTRIBUTION WIDTH 16.3 % (12.0-16.0); RED CELL COUNT 3.46 10/6/uL (4.0-5.6); WHITE BLOOD CELLS 9.2 10/3/uL (4.5-10.5)
[2017-02-04 06:04] LABS: MANUAL DIFF NO %
[2017-02-04 06:10] LABS: INTERNATIONAL NORMAL RATI 4.9 UNITS (-)
[2017-02-04 06:11] LABS: PARTIAL THROMBO TIME 103.7 SEC (22.5-37.2)
[2017-02-04 06:13] LABS: PROTIME (NOT ORD) 45.3 SEC (12.0-14.5)
[2017-02-04 06:17] LABS: A/G RATIO 0.8 (0.7-1.9); ALBUMIN 2.7 G/DL (3.5-5.0); CALCIUM, SERUM 8.2 MG/DL (8.5-10.4); CHLORIDE, SERUM 95 MMOL/L (96-112); CO2 (CARBON DIOXIDE) 37 MMOL/L (24-34); CREATININE 0.73 MG/DL (0.55-1.02); GFR AFRICAN AMERICAN 93 ML/MIN (>=60); GFR NON AFRICAN AMERICAN 80 ML/MIN (>=60); GLOBULIN 3.6 G/DL (2.5-4.1); GLUCOSE, SERUM 119 MG/DL (60-99); POTASSIUM, SERUM 3.7 MMOL/L (3.5-5.3); SGOT(AST) 18 U/L (5-40); SGPT(ALT) 13 U/L (5-65); SODIUM, SERUM 141 MMOL/L (135-148); TOTAL PROTEIN 6.3 G/DL (6.0-8.5)
[2017-02-04 06:18] LABS: ALKALINE PHOSPHATASE 116 U/L (45-117); BUN (BLOOD UREA NITROGEN) 31 MG/DL (6-23); TOTAL BILIRUBIN 0.4 MG/DL (0-1.2)
[2017-02-04 13:58] LABS: PARTIAL THROMBO TIME 50.1 SEC (22.5-37.2)
[2017-02-04 14:09] LABS: INTERNATIONAL NORMAL RATI 2.4 UNITS (-)
[2017-02-04 14:15] LABS: PROTIME (NOT ORD) 25.8 SEC (12.0-14.5)
[2017-02-05 04:53] LABS: BASOPHILS 0.4 %; BASOPHILS ABSOLUTE 0.03 10/3/uL (0.0-0.16); EOSINOPHILS 3.5 %; EOSINOPHILS ABSOLUTE 0.25 10/3/uL (0.0-0.53); HEMATOCRIT 34.4 % (36.0-48.0); HEMOGLOBIN 10.5 g/dL (12.0-16.0); IMMATURE GRANULOCYTES 0.1 %; IMMATURE GRANULOCYTES ABSOLUTE 0.01 10/3/uL (0.0-0.11); LYMPHOCYTES 21.7 %; LYMPHOCYTES ABSOLUTE 1.55 10/3/uL (0.67-4.30); MEAN CORPUS HGB CONC 30.5 g/dL (32.0-36.0); MEAN PLATELET VOLUME 10.2 fL (9.2-13.0); MONOCYTES 8.7 %; MONOCYTES ABSOLUTE 0.62 10/3/uL (0.21-1.20); NEUTROPHILS 65.6 %; NEUTROPHILS ABSOLUTE 4.69 10/3/uL (2.02-8.40); PLATELET COUNT 299 10/3/uL (150-400); RBC DISTRIBUTION WIDTH 16.1 % (12.0-16.0); RED CELL COUNT 3.62 10/6/uL (4.0-5.6); WHITE BLOOD CELLS 7.2 10/3/uL (4.5-10.5)
[2017-02-05 04:54] LABS: MANUAL DIFF NO %
[2017-02-05 04:57] LABS: PROTIME (NOT ORD) 22.6 SEC (12.0-14.5)
[2017-02-05 20:14] LABS: CALCIUM, SERUM 8.3 MG/DL (8.5-10.4); POTASSIUM, SERUM 3.6 MMOL/L (3.5-5.3)
[2017-02-06 05:34] LABS: BASOPHILS 0.6 %; BASOPHILS ABSOLUTE 0.04 10/3/uL (0.0-0.16); EOSINOPHILS 4.3 %; EOSINOPHILS ABSOLUTE 0.31 10/3/uL (0.0-0.53); HEMOGLOBIN 9.9 g/dL (12.0-16.0); IMMATURE GRANULOCYTES 0.4 %; IMMATURE GRANULOCYTES ABSOLUTE 0.03 10/3/uL (0.0-0.11); LYMPHOCYTES 19.8 %; LYMPHOCYTES ABSOLUTE 1.43 10/3/uL (0.67-4.30); MEAN CORPUSCULAR HEMOGLOB 28.1 pg (26.0-34.0); MEAN CORPUSCULAR VOLUME 93.8 fL (80-100); MEAN PLATELET VOLUME 10.1 fL (9.2-13.0); MONOCYTES 8.3 %; NEUTROPHILS 66.6 %; NEUTROPHILS ABSOLUTE 4.82 10/3/uL (2.02-8.40); PLATELET COUNT 291 10/3/uL (150-400); RBC DISTRIBUTION WIDTH 16.1 % (12.0-16.0); RED CELL COUNT 3.52 10/6/uL (4.0-5.6); WHITE BLOOD CELLS 7.2 10/3/uL (4.5-10.5)
[2017-02-06 05:36] LABS: MANUAL DIFF NO %
[2017-02-06 05:50] LABS: INTERNATIONAL NORMAL RATI 2.4 UNITS (-); PROTIME (NOT ORD) 25.9 SEC (12.0-14.5)
[2017-02-06 06:06] LABS: CALCIUM, SERUM 8.6 MG/DL (8.5-10.4); CHLORIDE, SERUM 98 MMOL/L (96-112); CO2 (CARBON DIOXIDE) 34 MMOL/L (24-34); CREATININE 0.67 MG/DL (0.55-1.02); GFR AFRICAN AMERICAN 99 ML/MIN (>=60); GFR NON AFRICAN AMERICAN 85 ML/MIN (>=60); GLUCOSE, SERUM 106 MG/DL (60-99); POTASSIUM, SERUM 3.6 MMOL/L (3.5-5.3); SODIUM, SERUM 141 MMOL/L (135-148)
[2017-02-06 06:10] LABS: BUN (BLOOD UREA NITROGEN) 36 MG/DL (6-23)
[2017-02-07 06:35] LABS: PROTIME (NOT ORD) 22.2 SEC (12.0-14.5)
[2017-02-07 06:47] LABS: ALBUMIN 2.9 G/DL (3.5-5.0); ALKALINE PHOSPHATASE 124 U/L (45-117); BUN (BLOOD UREA NITROGEN) 33 MG/DL (6-23); CALCIUM, SERUM 8.5 MG/DL (8.5-10.4); CHLORIDE, SERUM 94 MMOL/L (96-112); CK-MB 1.1 NG/ML; CO2 (CARBON DIOXIDE) 30 MMOL/L (24-34); CPK 34 U/L (0-200); CREATININE 0.68 MG/DL (0.55-1.02); DIRECT BILIRUBIN 0.2 MG/DL (0.0-0.4); GFR AFRICAN AMERICAN 98 ML/MIN (>=60); GFR NON AFRICAN AMERICAN 85 ML/MIN (>=60); GLUCOSE, SERUM 126 MG/DL (60-99); INDIRECT BILIRUBIN(NOT ORDER) 0.4 MG/DL (0.1-0.9); POTASSIUM, SERUM 3.7 MMOL/L (3.5-5.3); SGOT(AST) 25 U/L (5-40); SGPT(ALT) 17 U/L (5-65); SODIUM, SERUM 138 MMOL/L (135-148); TOTAL BILIRUBIN 0.6 MG/DL (0-1.2); TOTAL PROTEIN 6.7 G/DL (6.0-8.5)
[2017-02-08 05:45] LABS: BASOPHILS 0.3 %; BASOPHILS ABSOLUTE 0.03 10/3/uL (0.0-0.16); EOSINOPHILS 3.6 %; EOSINOPHILS ABSOLUTE 0.34 10/3/uL (0.0-0.53); HEMATOCRIT 31.8 % (36.0-48.0); HEMOGLOBIN 9.8 g/dL (12.0-16.0); IMMATURE GRANULOCYTES 0.4 %; IMMATURE GRANULOCYTES ABSOLUTE 0.04 10/3/uL (0.0-0.11); LYMPHOCYTES 19.7 %; LYMPHOCYTES ABSOLUTE 1.87 10/3/uL (0.67-4.30); MEAN CORPUS HGB CONC 30.8 g/dL (32.0-36.0); MEAN CORPUSCULAR HEMOGLOB 27.6 pg (26.0-34.0); MEAN PLATELET VOLUME 9.8 fL (9.2-13.0); MONOCYTES 5.7 %; MONOCYTES ABSOLUTE 0.54 10/3/uL (0.21-1.20); NEUTROPHILS 70.3 %; NEUTROPHILS ABSOLUTE 6.65 10/3/uL (2.02-8.40); PLATELET COUNT 325 10/3/uL (150-400); RBC DISTRIBUTION WIDTH 16.3 % (12.0-16.0); RED CELL COUNT 3.55 10/6/uL (4.0-5.6); WHITE BLOOD CELLS 9.5 10/3/uL (4.5-10.5)
[2017-02-08 05:48] LABS: MANUAL DIFF NO %; MEAN CORPUSCULAR VOLUME 89.6 fL (80-100)
[2017-02-08 05:49] LABS: INTERNATIONAL NORMAL RATI 1.9 UNITS (-); PROTIME (NOT ORD) 21.4 SEC (12.0-14.5)
[2017-02-08 05:57] LABS: CALCIUM, SERUM 8.9 MG/DL (8.5-10.4); CHLORIDE, SERUM 96 MMOL/L (96-112); CO2 (CARBON DIOXIDE) 29 MMOL/L (24-34); GFR AFRICAN AMERICAN 98 ML/MIN (>=60); GFR NON AFRICAN AMERICAN 84 ML/MIN (>=60); GLUCOSE, SERUM 131 MG/DL (60-99); POTASSIUM, SERUM 4.3 MMOL/L (3.5-5.3); SODIUM, SERUM 134 MMOL/L (135-148)
[2017-02-08 05:58] LABS: BUN (BLOOD UREA NITROGEN) 26 MG/DL (6-23)
[2017-02-09 04:56] LABS: INTERNATIONAL NORMAL RATI 2.1 UNITS (-)
[2017-02-09 04:58] LABS: BASOPHILS 0.2 %; BASOPHILS ABSOLUTE 0.03 10/3/uL (0.0-0.16); EOSINOPHILS 1.2 %; EOSINOPHILS ABSOLUTE 0.16 10/3/uL (0.0-0.53); HEMATOCRIT 32.5 % (36.0-48.0); HEMOGLOBIN 9.9 g/dL (12.0-16.0); IMMATURE GRANULOCYTES 0.4 %; IMMATURE GRANULOCYTES ABSOLUTE 0.05 10/3/uL (0.0-0.11); LYMPHOCYTES 16.3 %; LYMPHOCYTES ABSOLUTE 2.19 10/3/uL (0.67-4.30); MEAN CORPUS HGB CONC 30.5 g/dL (32.0-36.0); MEAN CORPUSCULAR HEMOGLOB 27.7 pg (26.0-34.0); MONOCYTES ABSOLUTE 0.81 10/3/uL (0.21-1.20); NEUTROPHILS 75.9 %; NEUTROPHILS ABSOLUTE 10.16 10/3/uL (2.02-8.40); PLATELET COUNT 359 10/3/uL (150-400); RBC DISTRIBUTION WIDTH 16.6 % (12.0-16.0); RED CELL COUNT 3.57 10/6/uL (4.0-5.6)
[2017-02-09 04:59] LABS: MANUAL DIFF NO %; WHITE BLOOD CELLS 13.4 10/3/uL (4.5-10.5)
[2017-02-09 05:10] LABS: BUN (BLOOD UREA NITROGEN) 28 MG/DL (6-23); CALCIUM, SERUM 8.7 MG/DL (8.5-10.4); CHLORIDE, SERUM 97 MMOL/L (96-112); CO2 (CARBON DIOXIDE) 27 MMOL/L (24-34); CREATININE 0.74 MG/DL (0.55-1.02); GFR AFRICAN AMERICAN 91 ML/MIN (>=60); GFR NON AFRICAN AMERICAN 79 ML/MIN (>=60); GLUCOSE, SERUM 121 MG/DL (60-99); POTASSIUM, SERUM 3.6 MMOL/L (3.5-5.3); SODIUM, SERUM 135 MMOL/L (135-148)
[2017-03-23] MEDS ORDERED: PRIN2.5 (12:36)
[2017-03-23] MEDS ORDERED: MIRALAX POWDER1 PKT PO (12:37)
[2017-03-23] MEDS ORDERED: PROTONIX PO/LIQ (12:38)
[2017-03-23] MEDS ORDERED: ZOL100 PO (12:39)
[2017-03-23] MEDS ORDERED: C5 PO ×2 (12:40→12:41)
[2017-03-23] MEDS ORDERED: T PO (12:42)
[2017-03-23] MEDS ORDERED: VITC500 PO (12:43)
[2017-03-23] MEDS ORDERED: ZENPEP5000 UNIT PO (12:44)
[2017-03-23] MEDS ORDERED: DIOCTO50 MG/5 ML PO (12:45)
[2017-03-23] MEDS ORDERED: LOP25 PO (12:47)
[2017-03-23] MEDS ORDERED: SEROQUEL50 MG PO (12:47)
[2017-03-23] MEDS ORDERED: NORCO1 TA1 PO (12:48)
[2017-03-23] MEDS ORDERED: ZOFRAN ODT4 MG PO (12:49)
[2017-03-23] MEDS ORDERED: ATV1 PO (12:49)
== END 2017-02-09 17:39 | DRG 216 ==
LOC: CORLMH 08:07 → SSU1 08:27 → 7NO 18:45 → SDC/OF 01-05 10:16 → CVICU 01-05 11:23 → 5NO 01-20 14:22
PROVIDERS: Anesthesiology; Internal Medicine Cardiovascular Disease; Internal Medicine Clinical Cardiac Electrophysiology; Internal Medicine Hematology & Oncology; Internal Medicine Interventional Cardiology; Nurse Practitioner Family; Thoracic Surgery (Cardiothoracic Vascular Surgery)
PROC: 4A023N7 Measurement of Cardiac Sampling and Pressure, Left Heart, Percutaneous Approach (ICD-10-PCS; 2017-01-01)
PROC: B2111ZZ Fluoroscopy of Multiple Coronary Arteries using Low Osmolar Contrast (ICD-10-PCS; 2017-01-01)
PROC: B2151ZZ Fluoroscopy of Left Heart using Low Osmolar Contrast (ICD-10-PCS; 2017-01-01)
PROC: 0210099 Bypass Coronary Artery, One Artery from Left Internal Mammary with Autologous Venous Tissue, Open Approach (ICD-10-PCS; 2017-01-05)
PROC: 06BQ4ZZ Excision of Left Saphenous Vein, Percutaneous Endoscopic Approach (ICD-10-PCS; 2017-01-05)
PROC: 06BP4ZZ Excision of Right Saphenous Vein, Percutaneous Endoscopic Approach (ICD-10-PCS; 2017-01-05)
PROC: 5A1221Z Performance of Cardiac Output, Continuous (ICD-10-PCS; 2017-01-05)
PROC: B246ZZ4 Ultrasonography of Right and Left Heart, Transesophageal (ICD-10-PCS; 2017-01-05)
PROC: 021309W Bypass Coronary Artery, Four or More Arteries from Aorta with Autologous Venous Tissue, Open Approach (ICD-10-PCS; principal; 2017-01-05 10:00)
PROC: 02R Heart and Great Vessels, Replacement (ICD-10-PCS; 2017-01-05 10:00)
PROC: 02RF08Z Replacement of Aortic Valve with Zooplastic Tissue, Open Approach (ICD-10-PCS; 2017-01-05 10:00)
PROC: 05H633Z Insertion of Infusion Device into Left Subclavian Vein, Percutaneous Approach (ICD-10-PCS; 2017-01-15)
PROC: 30233R1 Transfusion of Nonautologous Platelets into Peripheral Vein, Percutaneous Approach (ICD-10-PCS; 2017-01-15)
PROC: 0DH63UZ Insertion of Feeding Device into Stomach, Percutaneous Approach (ICD-10-PCS; 2017-01-25)
PROC: 0DJD8ZZ Inspection of Lower Intestinal Tract, Via Natural or Artificial Opening Endoscopic (ICD-10-PCS; 2017-01-25)
PROC: 0DBK8ZZ Excision of Ascending Colon, Via Natural or Artificial Opening Endoscopic (ICD-10-PCS; 2017-01-29)
PROC: 0W993ZZ Drainage of Right Pleural Cavity, Percutaneous Approach (ICD-10-PCS; 2017-02-01)
PROC: 0W9930Z Drainage of Right Pleural Cavity with Drainage Device, Percutaneous Approach (ICD-10-PCS; 2017-02-02)
PROC: 0W9930Z Drainage of Right Pleural Cavity with Drainage Device, Percutaneous Approach (ICD-10-PCS; 2017-02-03)
DX: I25.110 Atherosclerotic heart disease of native coronary artery with unstable angina pectoris (principal); I63.9 Cerebral infarction, unspecified; I50.33 Acute on chronic diastolic (congestive) heart failure; I97.820 Postprocedural cerebrovascular infarction following cardiac surgery; D62 Acute posthemorrhagic anemia; J90 Pleural effusion, not elsewhere classified; N39.0 Urinary tract infection, site not specified; J95.811 Postprocedural pneumothorax; I11.0 Hypertensive heart disease with heart failure; E78.5 Hyperlipidemia, unspecified; E66.9 Obesity, unspecified; I08.0 Rheumatic disorders of both mitral and aortic valves; Z88.6 Allergy status to analgesic agent; Z88.2 Allergy status to sulfonamides; Z88.5 Allergy status to narcotic agent; E03.9 Hypothyroidism, unspecified; Z95.2 Presence of prosthetic heart valve; D75.82 Heparin induced thrombocytopenia (HIT); Z79.899 Other long term (current) drug therapy; Z95.1 Presence of aortocoronary bypass graft; E11.9 Type 2 diabetes mellitus without complications; Z79.84 Long term (current) use of oral hypoglycemic drugs; Z79.01 Long term (current) use of anticoagulants; Z82.49 Family history of ischemic heart disease and other diseases of the circulatory system; Z83.3 Family history of diabetes mellitus; I48.0 Paroxysmal atrial fibrillation; Z68.31 Body mass index [BMI] 31.0-31.9, adult; E87.6 Hypokalemia; K64.4 Residual hemorrhoidal skin tags; D12.2 Benign neoplasm of ascending colon; K64.1 Second degree hemorrhoids; K57.30 Diverticulosis of large intestine without perforation or abscess without bleeding; R63.3 Feeding difficulties
CPT/HCPCS: 32555; 32557; 36415; 36430; 36569; 36600; 70450; 70496; 70498; 70551-52; 71010; 71020; 74000; 74177; 80048; 80053; 80061; 80076; 81001; 82248; 82272; 82310; 82330; 82533; 82550; 82553; 82803; 82805; 82947; 82962; 83036; 83735; 84100; 84132; 84134; 84295; 84484; 85014; 85018; 85025; 85049; 85347; 85384; 85576; 85610; 85730; 86022; 86022-59; 86850; 86900; 86901; 86920; 87040; 87077; 87086; 87186; 87493; 87493-59; 87641; 88304; 88305; 88311; 92523-GN; 92610-GN; 92950; 93005; 93306; 93308; 93312; 93320; 93325; 93460; 93880; 94002; 94640; 94660; 94770; 97110-GO; 97110-GP; 97163-GP; 97164-GP; 97167-GO; 97168-GO; 97530-GO; 97530-GP; 97535-GO; 99152; 99153; A9270-GY; C1713; C1751; C1769; C1894; C8924; C8929; G8978-CL-GP; G8978-CM-GP; G8979-CJ-GP; G8979-CK-GP; G8979-CL-GP; J0282; J0360; J0690; J0883; J1170; J1200; J1644; J1940; J1956; J2150; J2250; J2260; J2370; J2405; J2440; J2720; J2765; J2795; J2920; J2930; J3010; J3475; J3480; P9016; P9035; P9045; P9047; Q9957; Q9967